=== PATIENT | male | born 1965 | race Caucasian/White ===

== ENCOUNTER 2017-07-17 06:50 | Outpatient (CLI) | payer BC ==
[~2017-07-17] VITALS: Ht 185.4 cm; Wt 96.8 kg
--- NOTE | ~2017-07-17 | HEMODYNAMI ---
PATIENT:EULALIA WILLOUGHBY MEDICAL RECORD: [id number] : 61 LOCATION:[facility] ADMISSION DATE: 07/17/17 Generatedon:07/17/201710:32 Patient name: EULALIA WILLOUGHBY Patient #: [id number] SSN: : 1965 Date of study: 07/17/2017 Page: Of Hemodynamic Procedure Report Patient Data Patient Demographics Procedure consent was obtained First Name: EULALIA Gender: Male Last Name: CASE : 1965 Patient #: [id number] Age: 52 year(s) Race: Additional ID: [id number] Contact details Address: [place] [address] [place] [facility] Zip code: [address] Past Medical History Allergies: No known allergies Admission Admission Data Admission Date: 07/17/2017 Admission Time: 6:50 Procedure Procedure Types Cath Procedure Diagnostic Procedure Cardioversion Procedure Description Procedure Date Procedure Date: 07/17/2017 Procedure Start Time: 10:10 Procedure End Time: 10:28 Procedure Staff Name Function Marcus Duarte MD Performing Physician Madi Lemos RN Nurse Vito Jacob RT Monitor Yumiko Centeno RT Monitor Procedure Data Cath Procedure Fluoroscopy Diagnostic fluoroscopy Total fluoroscopy Time: 0 time: 0 min min Diagnostic fluoroscopy Total fluoroscopy dose: 0 dose: 0 mGy mGy Contrast Material Contrast Material Type Amount (ml) Isovue 300 0 Estimated blood loss: 10 ml Procedure Complications No complications Procedure Medications Medication Administration Route Dosage Oxygen NC 2 l/min Refer to Anesthesia Notes for Sedation Medications Hemodynamics Rest Pre Cath Intra NCS Post Cath Vital Signs Time Heart Resp SPO2 NIBP (mmHg) Rhythm Pain Sedation Rate (ipm) (%) Status Level (bpm) 9:45:35 68 17 97 121/83(97) NSR 0 (11) 10(A) , No pain 9:49:41 59 16 98 112/76(95) NSR 0 (11) 10(A) , No pain 9:53:43 54 23 97 114/79(101) NSR 0 (11) 10(A) , No pain 9:58:50 59 21 98 122/77(95) NSR 0 (11) 10(A) , No pain 10:02:56 59 14 98 119/80(97) NSR 0 (11) 10(A) , No pain 10:06:59 60 11 100 119/84(98) NSR 0 (11) 10(A) , No pain 10:12:35 128 19 99 Out of NSR 0 (11) 9(A) range , No pain 10:15:27 80 20 97 115/86(93) NSR 0 (11) 8(A) , No pain 10:19:37 77 26 97 108/80(95) NSR 0 (11) 9(A) , No pain 10:23:45 80 23 99 113/78(89) NSR 0 (11) 9(A) , No pain 10:27:57 60 17 99 106/63(78) NSR 0 (11) 9(A) , No pain Medications Time Medication Route Dose Verified Delivered Reason Notes Effectivene ss by by 9:54:52 Oxygen NC 2 Marcus Madi used for l/min Gerald Lemos swatch folder 9:54:57 Refer to Marcus Madi Anesthesia Gerald Lemos RN Notes for Sedation Medications Procedure Log Time Note 9:30:45 Vito Jacob RT(R) sent for patient. Start room use. 9:40:46 Time tracking: Regular hours 9:40:49 Plan of Care:Hemodynamics will remain stable., Cardiac rhythm will remain stable., Comfort level will be maintained., Respiratory function will remain adequate., Patient/ family verbilizes understanding of procedure., Procedure tolerated without complication., Recovers from procedure without complications.. 9:41:02 Patient arrived from Pre/Post Procedure Room to [facility] 2. Patient remains on bed/stretcher for procedure. 9:41:03 Warm blankets applied, and pauly hugger turned on for patient comfort. 9:41:04 Correct patient and procedure confirmed by team. 9:41:05 Signed procedure consent form obtained from patient. 9:41:05 ECG and BP/O2 sat monitors applied to patient. 9:41:15 [employer]tr[employer] office machines sales representative Mayo Love present for procedure. 9:42:50 Quick Combo opened to sterile field. 9:43:06 H&P Date Dictated: 07/07/2017 Within 30 days and on chart., H&P Addendum completed by physician on day of procedure. (MUST COMPLETE FOR ALL OUTPATIENTS). 9:43:06 Pre-procedure instructions explained to patient. 9:43:07 Pre-op teaching completed and patient verbalized understanding. 9:43:10 Family in patients room. 9:43:11 Patient NPO since Midnight. 9:43:12 Is the patient allergic to Iodine/contrast media? No. 9:43:13 Is patient on blood thinner?Yes 9:43:15 ACC The patient was administered the following blood thiners within the last 24 hours: Xarelto 9:43:18 Patient diabetic? No. 9:43:20 Previous problem with sedation/anesthesia? No ? 9:43:20 Snore? Yes 9:43:21 Sleep apnea? Yes 9:43:22 Deviated septum? No 9:43:23 Opens mouth fully? Yes 9:43:23 Sticks out tongue? Yes 9:43:25 Airway obstruction? No ? 9:43:26 Dentures? No ? 9:43:30 Patient pain scale 0/10 ?. 9:43:35 IV patent on arrival in left hand with 0.9% NaCl at [facility]. 9:43:37 Lab results completed and on chart. 9:43:39 Alarms reviewed by Emanuel Kumari 9:43:45 Quick combo pads placed on patients chest and back. 9:44:39 Vital chart was started 9:45:53 Rhythm: atrial fibrillation 9:45:55 Full Disclosure recording started 9:53:57 Kt Beckham present and monitoring patient for TIVA. 9:54:17 Case delayed do to Physician working in [facility]. 9:54:52 Oxygen 2 l/min NC was administered by Madi Lemos RN; used for procedure; 9:54:57 Refer to Anesthesia Notes for Sedation Medications was administered by Madi Lemos RN; ; 10:06:26 --------ALL STOP TIME OUT------ 10:06:27 Final Timeout: patient, procedure, and site verified with staff and physician. All members of the team are in agreement. 10:06:33 Physical assessment completed. ASA score P 3 - A patient with severe systemic disease as per Marcus Duarte MD. 10:06:37 Sedation plan: TIVA Propofol 10:10:11 Procedure started. 10:13:43 Defibrillator synced and charged to 200 Joules. 10:13:49 Shock delivered. 10:14:24 Patient cardioverted to sinus rhythm . 10:17:34 Procedure ended.(Physican Out) 10:25:57 Fluoroscopy time 00.00 minutes. 10::59 Flurop Dose total: 0 10::59 Fluoroscopy dose: 0 mGy 10:26:02 Contrast amount:Isovue 300 0ml. 10:26:16 Post-procedure physical assessment completed. ASA score P 3 - A patient with severe systemic disease as per Marcus Duarte MD. 10:26:19 Post procedure rhythm: unchanged. 10::22 Estimated blood loss: 10 ml 10:27:31 Post procedure instruction explained to patient.Patient verbalizes understanding. 10:27:31 Patient needs reinforcement of post procedure teaching. 10:27:39 Procedure and supply charges have been captured, reviewed, submitted and are correct. 10::59 Procedure Complication : No complications 10:28:02 Vital chart was stopped 10:28:02 See physician's report for complete and final results. 10:28:13 Report given to Pre/Post Procedure Room. 10:28:15 Patient transfered to Pre/Post Procedure Room with Stretcher. 10:28:17 Procedure ended. 10:28:17 Full Disclosure recording stopped 10:28:20 End room use (Document Last) Device Usage Item Manufacture Quantity Catalog Hospital Part Current Minimal Lot# / Name Number Charge Number Stock Stock Festusi al# Code [employer] 1 [id number] Combo Signature Audit [place] [employer] Time Signature Unsigned Intra-Procedure 07/17/2017 Vito Jacob 10:32:06 AM RT(R) Signatures Monitor : Vito Jacob RT Signature : Date : Time : Monitor : Yumiko Centeno Signature : RT Date : Time : [place] [address] [place] [address]
[~2017-07-17 06:50] MED LIST: BAYER CHEWABLE81 MG PO; BETAPACE 80 MG80 MG PO; CORDARONE PO; CORDARONE200 MG; CORDARONE200 MG PO; COREG PO; COREG25 MG PO; COREG6.25 MG PO; COZAAR25 MG PO; K-DUR20 MEQ PO; LASIX PO; LASIX20 MG PO; LOPRESSOR25 MG PO; MAGNESIUM OXID250 M1 PO; NEXIUM20 MG; PLAVIX75 MG PO; POTASSIUM PO; POTASSIUM99 M1 PO; SODIUM BICARBO325 MG PO; SODIUM CHLORIDE PO
[2017-07-17 08:25] VITALS: BP 102/74; Ht 185.4 cm; Wt 96.8 kg
[2017-07-17] MEDS ORDERED: XARELTO15 MG PO (08:32)
[2017-07-17 08:51] LABS: INR 1.95 (0.85-1.17); PROTIME 22.3 SECONDS (11.6-15.0)
[2017-07-17 08:55] LABS: CALCIUM 8.9 mg/dL (8.5-10.1); CARBON DIOXIDE 31.3 mmol/L (21.0-32.0); CREATININE - SERUM 1.3 mg/dL (0.6-1.3); POTASSIUM - SERUM 4.3 mmol/L (3.5-5.1)
[2017-07-17 09:56] LABS: BASOPHILS 0.7 % (0-2); EOSINOPHILS 4.1 % (0-7); HEMATOCRIT 48.4 % (42.0-54.0); IMMATURE GRANULOCYTES 0.2 % (0-5); MCHC 33.1 g/dL (31.0-37.0); MCV 90.8 fL (80.0-100.0); MEAN PLATELET VOLUME 12.1 fL (7.4-10.4); MONOCYTES 11.5 % (2-11); NEUTROPHILS 57.5 % (40-80); PLATELET COUNT 162 10x3/uL (130-400); RBC 5.33 10x6/uL (4.20-6.10); RDW 13.4 % (11.5-14.5); WBC 4.4 10x3/uL (4.8-10.8)
--- NOTE | 2017-07-17 10:30 | NUR ---
1030 RECEIVED PT FROM [facility]. PT IS ALERT, DENIES ANY C/O. SINUS RHYTHM, PACED AT 60 PER MONITOR, VSS. CALL LIGHT IN REACH, DENIES NEEDS AT THIS TIME.
--- NOTE | 2017-07-17 11:18 | NUR ---
1045 OFFERED PO FLUIDS AND SANDWICH, PT DECLINES AT THIS TIME. RR EVEN AND UNLABORED. VSS. PACED RHYTHM AT 60. PT DENIES ANY C/O CHEST PAIN.
--- NOTE | 2017-07-17 11:20 | NUR ---
1120 PT DENIES ANY C/O CHEST PAIN OR NAUSEA. VSS. STATES DOES NOT WANT SANDWICH AT THIS TIME.
--- NOTE | 2017-07-17 13:13 | NUR ---
1145 PT DENIES ANY C/O CHEST DISCOMFORT. PACED NSR AT 60. IV DC'D WITH CATH INTACT. PT DRESSING FOR DC. 1200 REVIEWED DC INSTRUCTIONS WITH PT WHO VERBALIZES UNDERSTANDING. PT HAS VOIDED QS. PT ESCORTED TO PRIVATE AUTO VIA WC BY NURSE WITH DRIVING HIM HOME.
== END 2017-07-17 12:00 | disposition home or self-care (01) ==
LOC: D.CATH 06:50
PROVIDERS: Internal Medicine Cardiovascular Disease
DX: I48.91 Unspecified atrial fibrillation (principal); Z01.812 Encounter for preprocedural laboratory examination

== ENCOUNTER 2018-05-21 12:50 | Day surgery (SDC) | payer BC ==
[~2018-05-21] VITALS: Ht 185.4 cm; Wt 97.1 kg
--- NOTE | ~2018-05-21 | OP ---
PATIENT NAME: EULALIA WILLOUGHBY MEDICAL RECORD: [id number] :61 LOCATION:[facility] ADMISSION DATE: SURGEON: CINTHIA BOWEN MD DATE OF OPERATION: 05/21/2018 SURGEON: Cinthia Bowen MD ANESTHESIA: General, Dr. Castillo. OPERATION PERFORMED: AICD pulse generator exchange. PREOPERATIVE DIAGNOSES: Cardiomyopathy, ventricular fibrillation. POSTOPERATIVE DIAGNOSES: Cardiomyopathy, ventricular fibrillation. INDICATION FOR OPERATION: Pulse generator battery end of life. FINDINGS OF THE OPERATION: Pulse generator end of life. The newly implanted pulse generator Medtronic model number [id number], serial number [id number]. Explanted defibrillator Medtronic model number R605VPW, serial number [id number]. LEAD ANALYSIS: Right atrium threshold 1 volt, current lead threshold 0.1 milliamps, resistance 474 ohms, P-wave 0.6. Ventricular lead threshold 1.75, current lead threshold 0.5 milliamps, resistance 340 ohms, R-wave 5.1. ESTIMATED BLOOD LOSS: Less than 5 cc. DESCRIPTION OF PROCEDURE: After informed consent, adequate preoperative medication and evaluation, the patient was brought to the operating room, placed on the table in supine position. After induction of general anesthesia, application of appropriate monitoring devices, left chest was prepped and draped in sterile field, utilizing Betadine scrub, alcohol, and Betadine solution. Betadine-impregnated drape was also used, 1% lidocaine was infiltrated over the device as well as in the pulse generator pocket. An incision was made. Dissection carried down the pectoralis major muscle. The implant was subpectoral. The muscle was divided and the pocket opened, the device was removed. The leads mobilized. The pocket was enlarged medially and inferiorly. Hemostasis was assured. The old device was removed and the new device connected to the leads. The pocket was irrigated. Hemostasis was assured. The pulse generator was then placed in the pocket and the device suspended with a 2-0 TiCron suture. The pocket was again irrigated. Instrument count, sponge count were correct times 2. Muscle was closed in layers utilizing 2-0 Vicryl on the muscle, 2-0 Vicryl on the deep subcutaneous tissue, 3-0 Vicryl on the superficial subcutaneous tissue, and skin approximated with 5-0 subcuticular Monocryl. Sterile dressings were applied. The patient tolerated the procedure well and was transferred to postanesthesia recovery in satisfactory condition. TRANSINT:[id number] Voice Confirmation ID: [id number] DOCUMENT ID: [id number] OPERATIVE REPORT [id number] EULALIA WILLOUGHBY EDWARD MD at 1358 CC: [id number] DICTATION DATE: 05/21/18 1627 SEO EXECUTIVE: 05/21/18 1800 [facility] 05/21/[address] [address]
--- NOTE | ~2018-05-21 | HP ---
PATIENT: EULALIA WILLOUGHBY MEDICAL RECORD: [id number] ACCOUNT: [id number] LOCATION:D.OPS : 61 ADMISSION DATE: 05/21/18 HISTORY AND PHYSICAL EXAMINATION NameEULALIA WILLOUGHBY (53yo, M) ID# [id number]. Date/Time05/21/2018 09:[id number]//1965[facility] Dept[facility] ClinicProviderEDBELEM SIBLEY MDInsuranceMed [place] Insurance # : [id number] Policy/Group # : [id number] Referring Provider Name : ROLDAN LEO Employer Name : [employer] Prescription: CMX - Member is eligible. Chief Complaint pulse generator end-of-life Evaluate for ICE gen. exchange Patient's Care Team Referring Provider (): ROLDAN LEO: [address] [place] [id number], , Other: ANNEMARIE ROBERTS MD: [address] [place] [address], Patient's Pharmacies [facility] (ERX): [address] [facility] [address], , Vitals BP:128/70 sitting R arm 05/21/2018 10:07 amHR:72/reg 05/21/2018 10:07 amHt:6 ft 1 in 05/21/2018 10:05 amWt:214 lbs 05/21/2018 10:05 amBMI:28.2 05/21/2018 10:05 amAllergies Reviewed Allergies NKDAMedications Reviewed Medications acetaminophen 300 mg-codeine 30 mg dbntih44/23/17 filledCaremarkamoxicillin 500 mg hvorvvq06/18/17 filledCaremarkamoxicillin 875 mg ilsrmm61/24/17 filledCaremarkaspirin 81mg05/20/18 enteredErika Watkinscarvedilol 25 mg loprcc93/01/18 filledCaremarkcarvedilol 3.125 mg cipqhg15/20/13 nmtrowYKBCRLicmqica14/30/11 enteredTracy Savaclopidogrel 75 mg trnouq86/26/12 filledMEDCOfluticasone 50 mcg/actuation nasal spray,xkdyxbqyil96/18/17 filledCaremarkFluzone Quad (PF) 60 mcg(15 mcgx4)/0.5 mL intramuscular bhdeled13/20/17 filledCaremarkfurosemide 20 mg lezvax29/15/18 filledCaremarkKlor-Con M20 mEq tablet,extended qettlzt82/20/18 filledCaremarklisinopril 2.5 mg /06/13 filledMEDCOlosartan 25 mg tablet Take 1 tablet(s) every day by oral route.05/20/18 enteredVanna WatkinsmetHOTREXate sodium 2.5 mg ipxior58/14/13 filledMEDCOmetOLazone 2.5 mg tablet Take 1 tablet(s) every day by oral route.05/20/18 enteredVanna PerezYfegzyhPyawuut83/30/11 enteredTracy Savaomeprazole 40 mg capsule,delayed twsqvuz61/01/12 filledMEDCOoseltamivir 75 mg fztogdi82/01/17 filledCaremarkoxyCODONE-acetaminophen 5 mg-325 mg ubtcub08/24/17 filledCaremarkpantoprazole 40 mg tablet,delayed uakxwdu43/04/12 filledMEDCOpenicillin V potassium 500 mg acmbam83/23/17 filledCaremarksotalol 80 mg tablet Take 1 tablet(s) twice a day by oral route.05/20/18 enteredVanna Pereztriamcinolone acetonide 0.1 % topical cream02/06/18 filledCaremarkXarelto 15 mg tablet Take 1 tablet(s) every day by oral route.05/20/18 Dante PerezProblems HISTORY AND PHYSICAL [id number] EULALIA WILLOUGHBY Reviewed Problems Mitral valve disorder Tricuspid valve disorder Cardiomyopathy Paroxysmal supraventricular tachycardia Obstructed diaphragmatic hernia Edema Dysphagia Automatic implantable cardiac defibrillator in situ Family History Reviewed Family History Mother- Malignant tumor of colon - previously recorded as Cancer, ColonSocial History Reviewed Social History Cardiology and General Family history of heart disease?: Y Smoking Status: Never smoker High Cholesterol: N High blood pressure: N Diabetes: N Alcohol intake: Occasional Occupation: SALES Marital status: Caffeine intake: Occasional Surgical History Reviewed Surgical History Other - broken shoulder and leg 2003 05/20/18 no PA required for 05/21/18 AICD gen exchange per Nakul @ [facility]. Ref #: [id number]. *SJ stent 12/09/05 ptac/stent lad ablation 01/11/14 pacemaker 05/03/13-medtronic stent 01/28/12-lad Past Medical History Reviewed Past Medical History Arrhythmia: Y - AFIB/SVT Atrial fibrillation: Y Chest Pain: Y Coronary Artery Disease: Y Heart Disease: Y Hiatal Hernia: Y Shortness of Breath: Y Notes: DEFIBRILLATOR-MEDTRONIC CARDIOMYOPATHY Documents for Discussion N/A Screening None recorded. HPI AICD Battery end-of-life HISTORY AND PHYSICAL [id number] EULALIA WILLOUGHBY Patient reports no fever, no night sweats, no significant weight gain, no significant weight loss, and no exercise intolerance. He reports no dry eyes, no irritation, and no vision change. He reports no difficulty hearing and no ear pain. He reports no frequent nosebleeds and no nose/sinus problems. He reports no sore throat, no bleeding gums, no snoring, no dry mouth, no mouth ulcers, no oral abnormalities, and no teeth problems. He reports no jugular vein distension and no swollen glands. He report s no chest pain, no arm pain on exertion, no shortness of breath when walking, no shortness of breath when lying down, no palpitations, and no known heart murmur. He reports no cough, no wheezing, no shortness of breath, and no coughing up blood. He report s no abdominal pain, no vomiting, normal appetite, no diarrhea, not vomiting blood, no nausea, and no constipation. He reports no incontinence, no difficulty urinating, no hematuria, and no increased frequency. He reports no muscle aches, no muscle weaknes s , no arthralgias/joint pain, no back pain, and no swelling in the extremities. He reports no abnormal mole, no jaundice, and no rashes. He reports no loss of consciousness, no weakness, no numbness, no seizures, no dizziness, and no headaches. He reports no depression, no sleep disturbances, feeling safe in relationship, and no alcohol abuse. He reports no fatigue. He reports no swollen glands and no bruising. He reports no runny nose, no sinus pressure, no itching, no hives, and no frequent sneezing. ROS as noted in the HPI Physical Exam Patient is a 53-year-old male. Constitutional: General Appearance well nourished and developed and healthy-appearing. Level of Distress NAD. Ambulation ambulating normally. Cardiovascular: Apical Impulse not displaced or no thrill; AICD left pectoral. Heart Auscultation normal s1 and s2; no murmurs, rubs, or gallops; and RRR. Arterial Pulses no abdominal aorta bruits, femoral bruits, or popliteal bruits and 2+ bilateral, carotid 2+ bilateral, femoral 2+ bilateral, poplite al 2+ bilateral, and dorsalis pedis 2+ bilateral. Edema no edema or varicosities. Lungs: Repiratory Effort no dyspnea. Percussion no hyperresonance or dullness or flatness. Auscultation no wheezing, rhonchi, or rales / crackles and breathing sounds normal, good air movement, and CTA except as noted. Abdomen: Bowl Sounds normal. Inspection and Palpation no tenderness, guarding, masses, or rebound tenderness and soft and non-distended. Liver non-tender and no hepatomegaly. Spleen non-tender and no splenomegaly. Hernia none palpable. Musculoskeletal System: Gait And Stance normal gait and stance. Digits and Nails normal nails and no cyanosis. Neurologic: Cranial Nerves grossly intact. Reflexes DTRs 2+ bilaterally throughout. Sensation grossly intact. Lymph Nodes: Lymph Nodes no cervical LAD, supraclavicular LAD, axillary LAD, or inguinal LAD. Eyes: Lids and Conjunctivae no discharge or pallor and non-injected. Pupils PERRLA. Cornea grossly intact. EOM EOMI. Lens clear. Sclerae non-icteric. Neck: Neck no masses, enlarged lymph nodes, or carotid bruits and supple and trachea midline. Thyroid no enlargement or nodules and non-tender. HISTORY AND PHYSICAL [id number] EULALIA WILLOUGHBY Skin: Inspection and Palpation no rash, lesions, ulcers, jaundice, or abnormal nevi. Assessment / Plan automatic implantable cardio defibrillator in situ 1. Automatic implantable cardiac defibrillator in situ Z95.810: Presence of automatic (implantable) cardiac defibrillator Discussion Notes I have discussed the tyrone moon's disease process with him in detail as well as the alternative methods of treatment we discussed AICD generator exchange including the expected benefits and risk which included bleeding, infection, stroke, , and imponderables. He understands a ll of the above and wishes to proceed with planned surgery. CINTHIA SIBLEY MD at 1358 CC: [id number] DICTATION DATE: 05/21/18 0940 GRIT REMOVAL OPERATOR: DM 05/21/18 1034 [facility] 05/21/18 [address] [place] [address]
[~2018-05-21 12:50] MED LIST changes: +XARELTO15 MG PO
[2018-05-21 13:30] LABS: HEMOGLOBIN 14.2 g/dL (13.5-17.5); MCH 29.7 pg (26.0-34.0); MEAN PLATELET VOLUME 11.3 fL (7.4-10.4); RBC 4.78 10x6/uL (4.20-6.10); RDW 13.2 % (11.5-14.5); WBC 4.5 10x3/uL (4.8-10.8)
[2018-05-21 13:34] LABS: APTT 29.3 SECONDS (22.8-39.4); INR 1.17 (0.85-1.17); PROTIME 14.5 SECONDS (11.6-15.0)
[2018-05-21 13:35] LABS: ANION GAP 8.6 mmol/L (8-16); CALCIUM 10.3 mg/dL (8.5-10.1); CARBON DIOXIDE 33.5 mmol/L (21.0-32.0); CREATININE - SERUM 1.2 mg/dL (0.6-1.3); POTASSIUM - SERUM 4.1 mmol/L (3.5-5.1)
[2018-05-21 14:24] VITALS: BP 121/70; Ht 185.4 cm; Wt 97.1 kg
== END 2018-05-21 18:25 | disposition home or self-care (01) ==
LOC: D.OPS 12:50
PROVIDERS: Internal Medicine Cardiovascular Disease
DX: Z45.02 Encounter for adjustment and management of automatic implantable cardiac defibrillator (principal); I42.9 Cardiomyopathy, unspecified; I49.01 Ventricular fibrillation; Z01.812 Encounter for preprocedural laboratory examination

== ENCOUNTER → 2018-08-25 11:12 | Outpatient (CLI) | payer BC ==
[~2018-08-25] VITALS: Ht 185.4 cm; Wt 99.1 kg
--- NOTE | ~2018-08-25 | OP ---
PATIENT NAME: EULALIA WILLOUGHBY MEDICAL RECORD: [id number] :61 LOCATION:[facility] ADMISSION DATE: SURGEON: SERENITY HSIEH MD DATE OF OPERATION: 08/25/2018 PROCEDURE: Cardioversion. DESCRIPTION OF PROCEDURE: After general sedation via TIVA anesthesia, single synchronized shock at 200 joules was successful in restoring atrial fibrillation to normal sinus rhythm. IMPRESSION: Successful cardioversion. COMPLICATIONS: None. DISPOSITION: To the floor, stable. TRANSINT:[id number] Voice Confirmation ID: [id number] DOCUMENT ID: [id number] SERENITY HSIEH MD at 1305 CC: [id number] DICTATION DATE: 08/25/18 1409 REGULATOR OPERATOR: 08/25/18 1422 [facility] CLI 08/25/18 [id number] [place] [address]
[~2018-08-25 11:12] MED LIST changes: +LEVOXYL25 MCG PO; +OMEPRAZOLE40 MG PO; +XARELTO20 MG PO
[2018-08-25 11:39] VITALS: BP 110/81; Ht 185.4 cm; Wt 99.1 kg
[2018-08-25 11:55] LABS: BASOPHILS 0.5 % (0-2); EOSINOPHILS 2.5 % (0-7); HEMATOCRIT 40.4 % (42.0-54.0); HEMOGLOBIN 13.4 g/dL (13.5-17.5); IMMATURE GRANULOCYTES 0.5 % (0-5); LYMPHOCYTES 16.6 % (15-50); MCH 29.3 pg (26.0-34.0); MCHC 33.2 g/dL (31.0-37.0); MCV 88.4 fL (80.0-100.0); MEAN PLATELET VOLUME 11.1 fL (7.4-10.4); MONOCYTES 10.5 % (2-11); NEUTROPHILS 69.4 % (40-80); PLATELET COUNT 150 10x3/uL (130-400); RBC 4.57 10x6/uL (4.20-6.10); RDW 13.8 % (11.5-14.5); WBC 6.5 10x3/uL (4.8-10.8)
[2018-08-25 12:05] LABS: INR 3.43 (0.85-1.17); PROTIME 33.8 SECONDS (11.6-15.0)
== END | disposition home or self-care (01) ==
LOC: D.CATH 11:12
PROVIDERS: Internal Medicine Cardiovascular Disease
DX: I48.1 Persistent atrial fibrillation (principal)

== ENCOUNTER 2018-11-19 11:25 | Day surgery (SDC) | payer BC ==
[~2018-11-19] VITALS: Ht 185.4 cm; Wt 100.0 kg
[2018-11-19 11:44] LABS: HEMATOCRIT 44.1 % (42.0-54.0); HEMOGLOBIN 14.3 g/dL (13.5-17.5); MCH 29.1 pg (26.0-34.0); MCHC 32.4 g/dL (31.0-37.0); MCV 89.6 fL (80.0-100.0); MEAN PLATELET VOLUME 10.6 fL (7.4-10.4); RBC 4.92 10x6/uL (4.20-6.10); RDW 14.8 % (11.5-14.5); WBC 6.8 10x3/uL (4.8-10.8)
[2018-11-19 12:05] VITALS: BP 116/73; Ht 185.4 cm; Wt 100.0 kg
--- NOTE | 2018-11-19 12:56 | NUR ---
DILATED ESOPHAGUS TO 57 FR.
--- NOTE | 2018-11-19 15:00 | NUR ---
DC INSTRUCTIONS GIVEN TO PT. STATES UNDERSTANDING. DC'D IV CATH FULLY INTACT.
--- NOTE | 2018-11-19 15:22 | NUR ---
PT LEFT UNIT VIA WC AT 1522
--- NOTE | 2018-11-27 15:41 | OP ---
PATIENT NAME: EULALIA MORGAN MEDICAL RECORD: [id number] :61 LOCATION:D.[facility] ADMISSION DATE: SURGEON: DAYA VEGAS MD DATE OF OPERATION: 11/19/2018 PROCEDURE: EGD with biopsy and esophageal balloon dilatation. REFERRING PHYSICIAN: Roldan Leo MD WOOD MECHANIST: Marcus Duarte MD INDICATIONS: Mr. Morgan is a delightful 53-year-old gentleman with a history of cardiac arrhythmia status post ablation, on Xarelto therapy. He has had longstanding history of dysphagia. He has symptoms of dysphagia and acid reflux, have improved initially on Omeprazole 40 mg p.o. b.i.d., he decreased the dose down to 40 mg p.o. daily secondary to diarrhea symptoms, which resolved. He presents for outpatient EGD. PREMEDICATIONS: Total IV anesthesia (propofol 100 mg). INSTRUMENT: Olympus video gastroscope and a through the scope esophageal balloon dilator. PROCEDURE AND FINDINGS: After receiving informed consent, Mr. Prados posterior pharynx was anesthetized with Cetacaine spray, placed in left lateral decubitus position, sedated as per anesthesia. After achieving adequate level of sedation, gastroscope was introduced per orally and advanced into the duodenum without difficulty. The esophageal mucosa was without ulcers or masses. At the GE junction was a thick nonobstructing ring through which the scope passed easily. Small hiatal hernia was present. Gastric mucosa was notable for minimal prepyloric and antral erythema, and antral biopsies were obtained to rule out Helicobacter pylori. The mucosa of the cardia, fundus and body of the stomach was normal. The pylorus was patent and competent. Duodenal mucosa was without erythema or ulcers, appeared normal through the second portion. Gastroscope was then withdrawn to the stomach and through the scope esophageal balloon dilator was passed and then positioned midway across the distal esophagus, insufflated to a 57-Mohawk size, held in place on the appropriate PSI for 60 seconds, then deflated with good results. The balloon and then the gastroscope was withdrawn. Mr. Morgan tolerated the procedure well, no immediate complications. ASSESSMENT: 1. Thick nonobstructive Schatzki's rings status post esophageal balloon dilatation. 2. Small hiatal hernia. 3. Mild gastritis. RECOMMENDATIONS: 1. Follow up histopathology. 2. Resume Xarelto and aspirin tomorrow. 3. Continue omeprazole 40 mg daily. 4. Esophageal EGD with esophageal balloon dilatation as needed. 5. Soft diet today and then resume regular diet tomorrow. TRANSINT:[id number] Voice Confirmation ID: [id number] DOCUMENT ID: [id number] OPERATIVE REPORT [id number] EULALIA MORGAN TERRI MD at 1541 CC: DAHIANA DUARTE M.D. and ROLDAN LEO MD [id number] DICTATION DATE: 11/19/18 1305 PROTOTYPE ENGINEER MANAGER: 11/19/18 1650 [facility] 11/19/18 [facility] [address] [place] [address]
== END 2018-11-19 15:22 | disposition home or self-care (01) ==
LOC: D.OPS 11:25
PROVIDERS: Anesthesiology
DX: K22.2 Esophageal obstruction (principal); K44.9 Diaphragmatic hernia without obstruction or gangrene; K29.70 Gastritis, unspecified, without bleeding; Z79.01 Long term (current) use of anticoagulants; Z01.812 Encounter for preprocedural laboratory examination

== ENCOUNTER → 2018-11-25 08:42 | Outpatient (CLI) | payer BC ==
[2018-11-19 12:05] VITALS: BMI 29.0
== END | disposition home or self-care (01) ==
LOC: D.CT 08:42
DX: R05 Cough (principal); J18.9 Pneumonia, unspecified organism

== ENCOUNTER → 2018-12-16 17:26 | Outpatient (CLI) | payer BC ==
[2018-11-19 12:05] VITALS: BMI 29.0
[2018-12-18 14:26] LABS: ANA REFLEX - DIRECT Negative (Negative)
[2018-12-21 13:13] LABS: ANGIOTENSIN CONVERTING ENZYME 147 U/L (14-82)
[2018-12-21 18:08] LABS: ANCA - ANTIMYELOPEROXIDASE <9.0 U/mL (0.0-9.0); ANCA - ANTIPROTEINASE 3 <3.5 U/mL (0.0-3.5); ANCA - ATYPICAL <1:20 titer (Neg:<1:20); ANCA - CYTOPLASMIC <1:20 titer (Neg:<1:20); ANCA - PERINUCLEAR <1:20 titer (Neg:<1:20)
== END | disposition home or self-care (01) ==
LOC: D.LABREF 17:26
PROVIDERS: Internal Medicine Pulmonary Disease
DX: J84.10 Pulmonary fibrosis, unspecified (principal)

== ENCOUNTER → 2018-12-21 10:54 | Outpatient (CLI) | payer BC ==
[2018-11-19 12:05] VITALS: BMI 29.0
== END | disposition home or self-care (01) ==
LOC: D.RT 10:54
DX: J84.10 Pulmonary fibrosis, unspecified (principal)

== ENCOUNTER 2019-04-15 11:38 | Inpatient (IN) | payer BC ==
[~2019-04-15] VITALS: Ht 185.4 cm; Wt 102.1 kg
--- NOTE | 2019-04-15 12:15 | NUR ---
RECEIVED TO ROOM 2240 VIA WC FROM DRS OFFICE. A/O X3. UP TO BR PER SELF. SKIN IS INTACT EXCEPT RIGHT LEG IS REDDENED, WARM AND EDEMATOUS. PATIENT STATED THIS HAS BEEN ON GOING FOR ABOUIT A WEEK. IV SITED TO RIGHT FOREARM AFTER 2 ATTEMPTS WITH 20G. TOLERATED WELL.
[2019-04-15] MEDS ORDERED: MONODOX100 MG PO (12:27)
[2019-04-15 12:28] VITALS: BP 111/71; BMI 29.7
--- NOTE | 2019-04-15 14:50 | NUR ---
OFF UNIT VIA FOR CT SCAN.
--- NOTE | 2019-04-15 15:15 | NUR ---
RETURNED TO ROOM VIA . NO CHANGES AT THIS TIME.
--- NOTE | 2019-04-15 18:38 | NUR ---
ATE ALL OF SUPPER TRAY. DENIES NEEDS. AT BEDSIDE. NO CHANGES NOTED.
--- NOTE | 2019-04-15 19:45 | NUR ---
PT SITTING UP IN BED, ALERT AND ORIENTED. NO SIGNS OF DISTRESS. PT STATES HE IS HAVING PAIN TO RIGHT LEG WHEN HE MOVES IT AROUND. RIGHT LEG RED AND SWOLLEN FROM FOOT TO INNER THIGH. IV RIGHT FA WITHOUT REDNESS OR SWELLING, DRESSING CDI. DENIES NEEDS. CL IN REACH, WILL CONT TO MONITOR
[2019-04-15 20:00] VITALS: BP 100/54
[2019-04-16] VITALS: BP 96/54
[2019-04-16 04:00] VITALS: BP 100/58
[2019-04-16 06:08] LABS: BASOPHILS 0.2 % (0-2); EOSINOPHILS 0.8 % (0-7); HEMOGLOBIN 11.5 g/dL (13.5-17.5); IMMATURE GRANULOCYTES 1.7 % (0-5); MCH 29.2 pg (26.0-34.0); MCHC 32.9 g/dL (31.0-37.0); MCV 88.8 fL (80.0-100.0); MEAN PLATELET VOLUME 9.6 fL (7.4-10.4); MONOCYTES 6.4 % (2-11); NEUTROPHILS 81.9 % (40-80); RBC 3.94 10x6/uL (4.20-6.10); RDW 15.5 % (11.5-14.5); WBC 9.6 10x3/uL (4.8-10.8)
[2019-04-16 06:22] LABS: PLATELET COUNT 240 10x3/uL (130-400)
[2019-04-16 06:31] LABS: ANION GAP 10.9 mmol/L (8-16); CALCIUM 8.7 mg/dL (8.5-10.1); CARBON DIOXIDE 29.5 mmol/L (21.0-32.0); CREATININE - SERUM 1.2 mg/dL (0.6-1.3); POTASSIUM - SERUM 3.4 mmol/L (3.5-5.1)
--- NOTE | 2019-04-16 07:37 | NUR ---
AAOX4. ON ROOM AIR, GLASSES PRESENT, EVEN UNLABORED BREATHING, IV TO RIGHT FOREARM, PATENT, ZOYSN INFUSING, DENIES ANY CURRENT NEEDS OR DISCOMFORTS, BED LOWERED AND LOCKED, CALL LIGHT WITHIN REACH, CPOC
[2019-04-16 12:46] VITALS: Ht 185.4 cm; Wt 102.1 kg
--- NOTE | 2019-04-16 17:00 | NUR ---
AAOX4. ON ROOM AIR, IV TO RIGHT FOREARM PATENT, INFUSING ZOYSN, DENIES ANY NEEDS OR DISCOMFORTS, REDNESS OF RIGHT LEG HAS NOT RECEDED NOR SPREAD ANY FURTHER, STATES "ONLY HURTS WHEN I WALK". BED LOWERED AND LOCKED, CALL LIGHT WITHIN REACH. CPOC
[2019-04-16 18:02] VITALS: BP 101/55
--- NOTE | 2019-04-16 19:35 | NUR ---
PT SITTING UP IN BED WITHOUT DISTRESS. ALERT AND ORIENTED. DENIES PAIN EXCEPT WHEN HE WALKS. REDNESS TO RIGHT UPPER THIGH DOWN TO FOOT. REDNESS HAS NO PASS DRAWN BLACK LINE. WARM TO TOUCH. IV RIGHT FA INFUSING NS @ KVO. DENIES NEEDS. CL IN REACH, WILL CONT TO MONITOR
[2019-04-16 19:53] VITALS: BP 102/57
[2019-04-17] VITALS: BP 94/55
[2019-04-17 04:00] VITALS: BP 90/41
[2019-04-17 06:44] LABS: BASOPHILS 0.4 % (0-2); EOSINOPHILS 2.2 % (0-7); HEMATOCRIT 34.7 % (42.0-54.0); HEMOGLOBIN 11.4 g/dL (13.5-17.5); IMMATURE GRANULOCYTES 1.5 % (0-5); LYMPHOCYTES 14.4 % (15-50); MCH 29.5 pg (26.0-34.0); MCHC 32.9 g/dL (31.0-37.0); MCV 89.7 fL (80.0-100.0); MEAN PLATELET VOLUME 9.6 fL (7.4-10.4); MONOCYTES 9.7 % (2-11); NEUTROPHILS 71.8 % (40-80); PLATELET COUNT 225 10x3/uL (130-400); RBC 3.87 10x6/uL (4.20-6.10); RDW 15.6 % (11.5-14.5); WBC 7.4 10x3/uL (4.8-10.8)
[2019-04-17 07:16] LABS: CALC OSMOLALITY 277 mosm/kg (275-300); CALCIUM 8.6 mg/dL (8.5-10.1); CARBON DIOXIDE 30.4 mmol/L (21.0-32.0); CHLORIDE - SERUM 101 mmol/L (98-107); GLUCOSE 98 mg/dL (74-106); POTASSIUM - SERUM 3.4 mmol/L (3.5-5.1); SODIUM 138 mmol/L (136-145); UREA NITROGEN 17 mg/dL (7-18); eGFR NON AFRICAN AMERICAN 82 mL/min (90-120)
--- NOTE | 2019-04-17 07:34 | NUR ---
AAOX4. ON ROOM AIR, IV TO RIGHT FOREARM, PATENT, NS AT 25ML/HR, RIGHT LEG SWOLLEN, WARM TO TOUCH, IMPROVEMENT FROM YESTERDAY, PAIN LEVEL 2/10. DENIES ANY NEEDS OR DISCOMFORTS, BED LOWERED AND LOCKED, CALL LIGHT WITHIN REACH. CPOC
[2019-04-17 09:34] VITALS: BP 99/57
[2019-04-17 13:09] VITALS: BP 103/61
[2019-04-17 16:26] VITALS: BP 97/61
[2019-04-17 19:52] VITALS: BP 110/62
[2019-04-18] VITALS: BP 110/73
[2019-04-18 04:00] VITALS: BP 107/50
--- NOTE | 2019-04-18 05:02 | NUR ---
PT IN BED IN SUPINE POSITION. ALERT AND ORIENTED X4. RESPIRATIONS EVEN AND UNLABORED. VS STABLE AND AFEBRILE. NO VISUAL CUES OF DISTRESS NOTED. DENIES ANY OTHER NEEDS AT THIS TIME. BED LOW, SIDE RAILS UP X2. CALL LIGHT IN REACH. WILL CONTINUE TO MONITOR.
[2019-04-18 05:40] LABS: BASOPHILS 0.3 % (0-2); EOSINOPHILS 2.3 % (0-7); HEMATOCRIT 34.8 % (42.0-54.0); HEMOGLOBIN 11.4 g/dL (13.5-17.5); LYMPHOCYTES 8.6 % (15-50); MCH 29.4 pg (26.0-34.0); MCHC 32.8 g/dL (31.0-37.0); MCV 89.7 fL (80.0-100.0); MEAN PLATELET VOLUME 9.5 fL (7.4-10.4); NEUTROPHILS 77.8 % (40-80); PLATELET COUNT 257 10x3/uL (130-400); RBC 3.88 10x6/uL (4.20-6.10); RDW 15.5 % (11.5-14.5); WBC 7.3 10x3/uL (4.8-10.8)
[2019-04-18 06:19] LABS: CALC OSMOLALITY 276 mosm/kg (275-300); CALCIUM 8.6 mg/dL (8.5-10.1); CARBON DIOXIDE 28.7 mmol/L (21.0-32.0); CHLORIDE - SERUM 102 mmol/L (98-107); GLUCOSE 100 mg/dL (74-106); POTASSIUM - SERUM 3.9 mmol/L (3.5-5.1); SODIUM 138 mmol/L (136-145); UREA NITROGEN 16 mg/dL (7-18); eGFR NON AFRICAN AMERICAN 82 mL/min (90-120)
--- NOTE | 2019-04-18 07:56 | NUR ---
AAOX4. ON ROOM AIR, IV TO RIGHT FOREARM, PATENT, SALINE LOCKED, CELLULITIS TO RIGHT LEG IS IMPROVING SINCE YESTERDAY, UPPER RIGHT THIGH NO LONGER RED OR SWOLLEN, DENIES ANY CURRENT NEEDS OR DISCOMFORTS, BED LOWERED AND LOCKED, CALL LIGHT WITHIN REACH. CPOC
[2019-04-18 09:03] VITALS: BP 116/76
[2019-04-18 12:40] VITALS: BP 106/61
[2019-04-18 17:09] VITALS: BP 132/78
[2019-04-18 20:00] VITALS: BP 126/72
--- NOTE | 2019-04-18 20:00 | NUR ---
ALERT SITTING UP IN BED, DENIES PAIN AT THIS TIME, SEE SHIFT ASSESSMENT, CALL LIGHT IN REACH
[2019-04-19] VITALS: BP 130/61
[2019-04-19 03:00] VITALS: BP 108/71
[2019-04-19 06:02] LABS: BASOPHILS 0.4 % (0-2); HEMATOCRIT 35.4 % (42.0-54.0); HEMOGLOBIN 11.4 g/dL (13.5-17.5); IMMATURE GRANULOCYTES 0.7 % (0-5); LYMPHOCYTES 14.5 % (15-50); MCH 29.2 pg (26.0-34.0); MCHC 32.2 g/dL (31.0-37.0); MCV 90.8 fL (80.0-100.0); MEAN PLATELET VOLUME 9.1 fL (7.4-10.4); MONOCYTES 11.3 % (2-11); NEUTROPHILS 70.1 % (40-80); PLATELET COUNT 231 10x3/uL (130-400); RDW 15.7 % (11.5-14.5); WBC 5.6 10x3/uL (4.8-10.8)
[2019-04-19 06:17] LABS: CALC OSMOLALITY 279 mosm/kg (275-300); CALCIUM 8.7 mg/dL (8.5-10.1); CARBON DIOXIDE 27.3 mmol/L (21.0-32.0); CHLORIDE - SERUM 105 mmol/L (98-107); CREATININE - SERUM 0.9 mg/dL (0.6-1.3); GLUCOSE 97 mg/dL (74-106); POTASSIUM - SERUM 3.9 mmol/L (3.5-5.1); SODIUM 140 mmol/L (136-145); UREA NITROGEN 16 mg/dL (7-18); eGFR NON AFRICAN AMERICAN > 90 mL/min (90-120)
[2019-04-19 08:46] VITALS: BP 124/70
[2019-04-19 12:30] VITALS: BP 106/61
--- NOTE | 2019-04-19 14:28 | NUR ---
Nutrition follow up Pt is eating well on regular diet; 100-75% intake of meals today Noted may d/c tomorrow or Friday Pt not available in room at this time RD following
--- NOTE | 2019-04-19 16:40 | MORECARE ---
CASE MANAGEMENT DISCHARGE SUMMARY PATIENT: EULALIA MORGAN UNIT: [id number] ADM DATE: 04/16/19 AGE: 54 : 61 SEX: M ROOM/BED: D.2240 AUTHOR: MIGUEL A MESSER PHYSICIAN: REFERRING PHYSICIAN: ROLDAN LEO MD DATE OF SERVICE: 04/19/19 Discharge Plan Patient Name: EULALIA MORGAN Facility: [facility]:[place] : 1965 Planned Disposition: Home Anticipated Discharge Date: Discharge Date: Expected LOS: Initial Reviewer: [email or web address] Initial Review Date: 04/19/2019 Generated: 04/19/19 5:40 pm DCPIA - Discharge Planning Initial Assessment Updated by [email or web address]: Krupa Arreguin on 04/19/19 4:39 pm * Is the patient Alert and Oriented? Yes * How many steps to enter\exit or inside your home? 05/16 * PCP Dr. Leo * Pharmacy [facility] [address] * Preadmission Environment Home with Family * ADLs Independent * Equipment Cane * List name and contact numbers for known caregivers / representatives who currently or will assist patient after discharge: Eva Morgan - spouse - [phone] * Verbal permission to speak to the caregivers and representatives has been obtained from the patient. Yes * Community resources currently utilized None * Additional services required to return to the preadmission environment? No * Can the patient safely return to the preadmission environment? Yes * Has this patient been hospitalized within the prior 30 days at any hospital? No Patient Name: EULALIA MORGAN Page 23513 at 1640 All edits/amendments must be made on the electronic document DICTATION DATE: 04/19/19 1640 FISH RECEIVER: GABRIELA 04/19/19 1640 RPT#: [id number] DC DATE: STATUS: ADM IN [facility] [address] [place] [address] END OF REPORT
[2019-04-19 17:01] VITALS: BP 126/75
--- NOTE | 2019-04-19 20:00 | NUR ---
ALERT SITTING UP IN BED, DENIES PAIN OR NEEDS AT THIS TIME, SEE SHIFT ASSESSMENT, CALL LIGHT IN REACH
[2019-04-19 21:31] VITALS: BP 110/69
[2019-04-20 05:03] VITALS: BP 113/69
[2019-04-20 05:51] LABS: BASOPHILS 0.3 % (0-2); EOSINOPHILS 2.8 % (0-7); HEMATOCRIT 35.5 % (42.0-54.0); HEMOGLOBIN 11.5 g/dL (13.5-17.5); MCH 29.2 pg (26.0-34.0); MCHC 32.4 g/dL (31.0-37.0); MCV 90.1 fL (80.0-100.0); MEAN PLATELET VOLUME 9.5 fL (7.4-10.4); MONOCYTES 11.1 % (2-11); NEUTROPHILS 71.8 % (40-80); PLATELET COUNT 224 10x3/uL (130-400); RBC 3.94 10x6/uL (4.20-6.10); RDW 15.9 % (11.5-14.5); WBC 5.8 10x3/uL (4.8-10.8)
[2019-04-20 06:14] LABS: CALC OSMOLALITY 278 mosm/kg (275-300); CALCIUM 8.7 mg/dL (8.5-10.1); CARBON DIOXIDE 26.5 mmol/L (21.0-32.0); CHLORIDE - SERUM 106 mmol/L (98-107); CREATININE - SERUM 0.9 mg/dL (0.6-1.3); GLUCOSE 100 mg/dL (74-106); POTASSIUM - SERUM 4.3 mmol/L (3.5-5.1); SODIUM 139 mmol/L (136-145); UREA NITROGEN 16 mg/dL (7-18); eGFR NON AFRICAN AMERICAN > 90 mL/min (90-120)
[2019-04-20 08:43] VITALS: BP 123/86
[2019-04-20] MEDS ORDERED: CLEOCIN HCL300 MG PO (12:50)
--- NOTE | 2019-04-20 13:58 | MORECARE ---
CASE MANAGEMENT DISCHARGE SUMMARY PATIENT: EULALIA MORGAN UNIT: [id number] ADM DATE: 04/16/19 AGE: 54 : 61 SEX: M ROOM/BED: D.2240 AUTHOR: MIGUEL A MESSER PHYSICIAN: REFERRING PHYSICIAN: ROLDAN LEO MD DATE OF SERVICE: 04/20/19 Discharge Plan Patient Name: EULALIA MORGAN Facility: [facility]:[place] : 1965 Planned Disposition: Home Anticipated Discharge Date: Discharge Date: Expected LOS: Initial Reviewer: [email or web address] Initial Review Date: 04/19/2019 Generated: 04/20/19 2:57 pm Comments DCP- Discharge Planning Updated by [email or web address]: Krupa Arreguin on 04/20/19 12:[address] Patient Name: EULALIA MORGAN Encounter No: [id number] : 1965 Primary Insurance: [employer] [facility] Anticipated DC Date: Planned Disposition: Home External Planned Provider: : DCP follow-up note: Patient and family in agreement with discharge plan. No changes to plan. Case management will follow and assist as needed. Krupa Arreguin DCP- Discharge Planning Updated by [email or web address]: Krupa Arreguin on 04/19/19 3:[address] Patient Name: EULALIA MORGAN Admission Status: Elective Accout number: [id number] Admission Date: 04-16-2019 : 1965 Admission Diagnosis:LOWER ABDOMINAL PAIN, UNSPECIFIED Attending: ROLDAN LEO Current LOS: 3 Anticipated DC Date: Planned Disposition: Home Primary Insurance: [employer] [place] PPO Discharge Planning Comments: CM met with patient to complete initial dc planning assessment. CM educated patient on the CM role and verbal consent given by patient to complete assessment. Patient lives at home with his . At discharge patient plans to return and feels this is a safe discharge. CM discussed availability of home health, rehab services, and medical equipment. Patient denied known discharge needs at this time. CM will continue to follow and will assist as needed with dc plans/needs. Managing Supervisor: Krupa Arreguin DCPIA - Discharge Planning Initial Assessment Updated by [email or web address]: Krupa Arreguin on 04/19/19 4:39 pm * Is the patient Alert and Oriented? Yes * How many steps to enter\exit or inside your home? 05/16 * PCP Dr. Leo * [place] [facility] [place] [address] * Preadmission Environment Home with Family * ADLs Independent * Equipment Cane * List name and contact numbers for known caregivers / representatives who currently or will assist patient after discharge: Eva Morgan - [facility] - [phone] * Verbal permission to speak to the caregivers and representatives has been obtained from the patient. Yes * Community resources currently utilized None * Additional services required to return to the preadmission environment? No * Can the patient safely return to the preadmission environment? Yes * Has this patient been hospitalized within the prior 30 days at any hospital? No Last DP export: 04/19/19 3:40 p Patient Name: EULALIA MORGAN Page 62955 at 1358 All edits/amendments must be made on the electronic document DICTATION DATE: 04/20/191356 KIER HAND: GABRIELA 04/20/191356 RPT#: [id number] DC DATE: STATUS: ADM IN [facility] [address] [place] [address] END OF REPORT
[2019-04-20 14:40] VITALS: BP 126/79
--- NOTE | 2019-04-20 14:43 | NUR ---
DR HARE HERE OK WITH DC HOME
--- NOTE | 2019-04-20 15:56 | NUR ---
DISCHARGE INSTRUCTIONS GIVEN. PATIENT VERBALIZED UNDERSTANDING. 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 IV THERAPY DC'ED WITH TIP INTACT
== END 2019-04-20 15:57 | disposition home or self-care (01) | DRG 603 ==
LOC: D.MS 11:38 → D.CT 11:38 → D.MS 11:39 → D.CT 11:40 → D.MS 11:40 → OBSVTIME 11:40 → D.MS 11:40
PROVIDERS: ADMIT Family Medicine; ATTEND Family Medicine
DX: L03.314 Cellulitis of groin (principal); R78.81 Bacteremia; I50.9 Heart failure, unspecified; I48.91 Unspecified atrial fibrillation; L40.8 Other psoriasis

== ENCOUNTER → 2019-05-20 12:38 | Outpatient (CLI) | payer BC ==
[2019-04-16 12:46] VITALS: BMI 29.6
[~2019-05-20 12:38] MED LIST changes: +CLEOCIN HCL300 MG PO; +MONODOX100 MG PO
== END | disposition home or self-care (01) ==
LOC: D.CT 12:38
PROVIDERS: ATTEND Internal Medicine Cardiovascular Disease
DX: J84.10 Pulmonary fibrosis, unspecified (principal)

== ENCOUNTER 2019-06-11 13:20 | Inpatient (IN) | payer BC ==
[~2019-06-11] VITALS: Ht 185.4 cm; Wt 96.5 kg
--- NOTE | ~2019-06-11 | OP ---
PATIENT NAME: EULALIA WILLOUGHBY MEDICAL RECORD: [id number] :[birth year] LOCATION:[facility].CV01 ADMISSION DATE:06/14/19 SURGEON: CINTHIA BOWEN MD DATE OF OPERATION: 06/14/2019 SURGEON: Cinthia Bowen MD ANESTHESIA: General, Dr. Guo. OPERATION PERFORMED: 1. Video-assisted thoracoscopy. 2. Right middle lobe biopsy. 3. Right lower lobe biopsy. PREOPERATIVE DIAGNOSIS: Pulmonary fibrotic changes. POSTOPERATIVE DIAGNOSIS: Pulmonary fibrotic changes. INDICATION FOR OPERATION: Fibrous interstitial lung disease. ESTIMATED BLOOD LOSS: Negligible. Cultures were taken for anaerobic, TB, and fungus on both specimens. There were no suspicious lesions noted in the right hemithorax. DESCRIPTION OF PROCEDURE: After informed consent, adequate preoperative medication evaluation, the patient was brought to the operating room, placed on the table in the supine position. After induction of general endotracheal anesthesia and application of appropriate monitoring devices, the patient underwent placement of a double lumen tube. The patient was then turned in a left lateral decubitus and pressure points and neurological structures were protected. The right hemithorax was then prepped and draped in a sterile field, utilizing Betadine scrub, alcohol, and Betadine solution. Betadine-impregnated drape was also used. A port site was placed in the 9th interspace mid axillary line and the scope introduced. The other 2 ports anteriorly and posteriorly placed under direct guidance. The lung and hemithorax were examined. The middle lobe biopsy was then taken by grasping the edge of the lobe and utilizing an Endo-ARGELIA stapler, the specimen was removed. Portions cultured for anaerobic, TB, and fungal tissue cultures. Attention was then turned towards the lower lobe. The area of the lower lobe that looked involved with the fibrotic process was then grasped and utilizing an Endo-ARGELIA stapler, the biopsy was performed. A portion of this specimen was sent for tissue cultures as well. The chest was again examined. A #32 chest tube was placed in the camera port, secured and connected to underwater seal and suction. Instrument count and sponge counts were correct times 2. The anterior and posterior incisions were closed utilizing 2-0 Vicryl on the muscle and 3-0 Vicryl on subcutaneous tissue and skin approximated with 5-0 subcuticular Monocryl. Sterile dressings were applied. The patient tolerated the procedure well and was transferred to the CV ICU in satisfactory condition. TRANSINT:[id number] Voice Confirmation ID: [id number] DOCUMENT ID: [id number] OPERATIVE REPORT [id number] EULALIA WILLOUGHBY EDWARD MD CC: [id number] DICTATION DATE: 06/14/19912 FILENET P8 DEVELOPER: 06/14/19 1016 ADM IN [facility] [id number] [place] [address]
[2019-06-11 15:21] LABS: HEMATOCRIT 42.7 % (42.0-54.0); MCH 29.5 pg (26.0-34.0); MCHC 32.8 g/dL (31.0-37.0); MCV 90.1 fL (80.0-100.0); MEAN PLATELET VOLUME 10.6 fL (7.4-10.4); RBC 4.74 10x6/uL (4.20-6.10); RDW 14.6 % (11.5-14.5); WBC 5.7 10x3/uL (4.8-10.8)
[2019-06-11 15:38] LABS: APPEARANCE CLEAR (CLEAR); BILIRUBIN NEGATIVE (NEGATIVE); COLOR DK YELLOW (YELLOW); GLUCOSE NEGATIVE (NEGATIVE); KETONE NEGATIVE (NEGATIVE); NITRITE NEGATIVE (NEGATIVE); PROTEIN NEGATIVE (NEGATIVE); SPECIFIC GRAVITY 1.015 (1.005-1.020); UROBILINOGEN NORMAL (NORMAL)
[2019-06-11 15:39] LABS: ALBUMIN 3.8 g/dL (3.4-5.0); APTT 28.9 SECONDS (22.8-39.4); BILIRUBIN - TOTAL 0.72 mg/dL (0.2-1.3); CALCIUM 8.6 mg/dL (8.5-10.1); CARBON DIOXIDE 30.1 mmol/L (21.0-32.0); CREATININE - SERUM 1.1 mg/dL (0.6-1.3); INR 1.1 (0.85-1.17); POTASSIUM - SERUM 4.1 mmol/L (3.5-5.1); PROTEIN - SERUM 7.9 g/dL (6.4-8.2); PROTIME 13.7 SECONDS (11.6-15.0)
[2019-06-14] VITALS (58 sets, daily range): BP systolic 89–134; BP diastolic 45–586; BMI 28.8; BMI 29.4
[2019-06-14] MEDS ORDERED: CLARITIN 10 MG10 MG PO (05:55)
--- NOTE | 2019-06-14 09:21 | NUR ---
0911 PT ARRIVED FROM OR ALERT AND ORIENTED O2 WEANED TO 5L NC, R IJ CVL DRESSING CDI WITH PLASMALYTE INFUSING 30ML/HR, R LAT SIDE CTX2 TO 20CM SUCTION NO AIR LEAK, CRITICORE DRAINING YELLOW URINE, EPIDURAL SITE CDI INFUSING 6ML HOURLY WITH HOUSE CALLS NURSE Q20MIN 3ML, L ART LINE ZEROED, GOOD WAVEFORM, WRIST PROTECTOR IN PLACE
--- NOTE | 2019-06-14 09:42 | NUR ---
SHY NAVARRETE NURSE NOTIFIED OF OCCASIONAL DERECK 58 HR AND THAT PATRICK CANNON APPLIED ON ARRIVAL FOR TEMP OF 34.9C VIA CRITICORE AND UNREADABLE ON ORAL/AXILLARY
--- NOTE | 2019-06-14 12:54 | NUR ---
PO MEDS GIVEN SPACED OUT AND USING ROBIN PER DR SIBLEY
--- NOTE | 2019-06-14 17:25 | NUR ---
REPOSITIONED HOURLY, DENIES PAIN, USES EPIDURAL TRACTOR TECHNICIAN INDEPENDENTLY, AT BEDSIDE, USES IS AND INSTRUCTED TO DO SO 10X HOURLY, CALL LIGHT WITHIN REACH, TOLERATING DINNER AND CLEAR LIQUIDS, WILL CONITNUE TO M ONITOR
--- NOTE | 2019-06-14 19:10 | NUR ---
REPORT RECEIVED, SHIFT ASSESSMENT COMPLETED PER FLOW SHEET. AAOX4. PPP. RT LATERAL CHEST INCISION SITE NOTED, DRESSING C/D/I, CT TO 20 CM SUCTION, NO AIR LEAK. 1 L 02 VIA NC. COUGH/DEEP BREATHING AND USE OF IS ENCOURAGED, COUGH STRONG/NON-PRODUCTIVE, PULLING 2500 ON IS. REPOSITIONED IN BED, TEACHING PROVIDED ON IMPORTANCE OF REPOSITIONING ORDERED BY PHYSICIAN, HE VERBALIZED UNDERSTANDING. TEACHING PROVIDED ON USE OF PROPELLER ENGINEER BUTTON FOR PAIN, HE STATES HE DOES NOT HAVE ANY PAIN. CALL LIGHT AND PROPELLER ENGINEER BUTTON WITHIN REACH. AT BEDSIDE. WILL CONTINUE TO MONITOR.
--- NOTE | 2019-06-14 21:00 | NUR ---
SCHEDULED MEDS GIVEN, WATER PROVIDED, NO TROUBLE SWALLOWING. AT BEDSIDE, PILLOW AND BLANKET PROVIDED TO . PATIENT DENIES PAIN OR NEEDS AT THIS TIME. PULLING [id number] ON IS, COUGH STRONG AND NON-PRODUCTIVE. CALL LIGHT AND GROUP MANAGER BUTTON WITHIN REACH. WILL CONTINUE TO MONITOR.
--- NOTE | 2019-06-14 23:01 | NUR ---
REASSESSMENT COMPLETED PER FLOW SHEET, SEE FOR DETAILS. DENIES PAIN. PULLING 2500 X10 ON IS. COUGH STRONG. REPOSITIONED IN BED. WILL CONTINUE TO MONITOR.
--- NOTE | 2019-06-14 23:07 | NUR ---
BP 89/45. MAP 60. NEOSYNEPHRINE INCREASED, SEE FLOW SHEET FOR DETAILS. WILL CONTINUE TO MONITOR.
[2019-06-15] VITALS (49 sets, daily range): BP systolic 92–121; BP diastolic 47–84; Ht 185.4 cm; Wt 96.5 kg
--- NOTE | 2019-06-15 01:00 | NUR ---
RESTING, REPOSITIONED IN BED. AT BEDSIDE. PATIENT DENIES NEEDS. WILL CONTINUE TO MONITOR.
--- NOTE | 2019-06-15 03:01 | NUR ---
REASSESSMENT COMPLETED PER FLOW SHEET, SEE FOR DETAILS. CALL LIGHT WITHIN REACH.
--- NOTE | 2019-06-15 05:00 | NUR ---
RESTING, NO ACUTE CHANGES NOTED. DENIES NEEDS AT THIS TIME. CALL LIGHT WITHIN REACH.
--- NOTE | 2019-06-15 06:00 | NUR ---
COMPLETE BED BATH GIVEN, COMPLETE BED LINEN CHANGE. WEISS CARE PROVIDED. ASSISSTED WITH BATH. REPOSITIONED IN BED. DENIES NEEDS. CALL LIGHT WITHIN REACH. WILL CONTINUE TO MONITOR.
[2019-06-15 06:37] LABS: HEMATOCRIT 37.6 % (42.0-54.0); HEMOGLOBIN 12.3 g/dL (13.5-17.5); MCH 29.4 pg (26.0-34.0); MCHC 32.7 g/dL (31.0-37.0); MEAN PLATELET VOLUME 10.9 fL (7.4-10.4); RBC 4.18 10x6/uL (4.20-6.10); RDW 14.9 % (11.5-14.5); WBC 7.1 10x3/uL (4.8-10.8)
[2019-06-15 06:43] LABS: ALBUMIN 3.1 g/dL (3.4-5.0); ANION GAP 11.7 mmol/L (8-16); BILIRUBIN - TOTAL 0.87 mg/dL (0.2-1.3); CALCIUM 8.3 mg/dL (8.5-10.1); CARBON DIOXIDE 25.4 mmol/L (21.0-32.0); CREATININE - SERUM 1.3 mg/dL (0.6-1.3); POTASSIUM - SERUM 4.1 mmol/L (3.5-5.1); PROTEIN - SERUM 6.8 g/dL (6.4-8.2)
--- NOTE | 2019-06-15 07:00 | NUR ---
RECEIVED REPORT AT BEDSIDE. PATIENT RESTING IN BED AWAKE ALERT AND ORIENTED. FENTANYL EPIDURAL INFUSION INTACT. CLINICAL SUPPORT ASSOCIATE PUMP IN REACH. ART LINE TO LEFT RADIAL MATCHES CUFF PRESSURE. BP STABLE. RIJ INFUSING PLASMALYTE AT 30ML/HR, NEOSYNEPHRINE 0.2MICROGRAMS/5.9ML/HR. CHEST TO RIGHT SIDE DRAINING SEROSANGUINEOUS FLUID. DRESSING INTACT. RIGHT POSTERIOR INCISION DRESSING CDI. SELINA HOSE AND SCD'S IN USE. CRITICORE WEISS IN PLACE. INSTRUCTED PATIENT TO TURN TO LEFT SIDE TO COUGH AND DEEP BREATH. WILL CHECK ORDERS AND CONTINUE TO MONITOR
--- NOTE | 2019-06-15 08:43 | NUR ---
PATIENT ATE 100% BREAKFAST. TURNED AND INSTRUCTED TO COUGH. STILL ON ROBIN 0.2 MICROGRAM/KG/MIN. WILL TITRATE TOLERATED. HOLDING LOSARTAN FOR NOW. WILL CONTINUE TO MONITOR. VSS
--- NOTE | 2019-06-15 11:12 | NUR ---
CHANGED CHEST TUBE DRESSING IT WAS SATURATED. CLEANED WITH BETA DINE AND DRESSED WITH NEW GUAZE AND TEGADERM. CHANGED LINENS WELL. VSS
--- NOTE | 2019-06-15 13:22 | NUR ---
SYSTOLIC BP DROPPED DOWN TO 80'S. RESTARTED NEOSYNEPHRINE DRIP AT 0.1MCG/KG/MIN. PT OTHERWISE STABLE
--- NOTE | 2019-06-15 14:00 | NUR ---
patient resting in bed c call montemayor in reach. in room. vss
--- NOTE | 2019-06-15 15:56 | NUR ---
TURNED PATIENT TO LEFT SIDE. VSS. DC'S PIV TO LEFT FOREARM.
--- NOTE | 2019-06-15 16:19 | NUR ---
NOTIFIED DR. MENJIVAR THAT FENTANYL EPIDURAL WILL RUN OUT OVER NIGHT. STATED HE WOULD BE BACK LATER TO REFILL.
[2019-06-15 18:08] LABS: ACID FAST SMEAR Negative (()); AFB SPECIMEN PROCESSING Tissue Grinding (())
--- NOTE | 2019-06-15 19:16 | MORECARE ---
CASE MANAGEMENT DISCHARGE SUMMARY PATIENT: EULALIA WILLOUGHBY UNIT: [id number] ADM DATE: 06/14/19 AGE: 54 : 61 SEX: M [facility] AUTHOR: MIGUEL A MESSER PHYSICIAN: REFERRING PHYSICIAN: CINTHIA SIBLEY MD DATE OF SERVICE: 06/15/19 Discharge Plan Patient Name: EULALIA WILLOUGHBY Facility: [facility]:[place] : 1965 Planned Disposition: Home Anticipated Discharge Date: Discharge Date: Expected LOS: Initial Reviewer: [email or web address] Initial Review Date: 06/15/2019 Generated: 06/15/19 8:15 pm Patient Name: EULALIA WILLOUGHBY Page 73137 at 1916 All edits/amendments must be made on the electronic document DICTATION DATE: 06/15/191914 ECHO TECHNOLOGIST: GABRIELA 06/15/191914 RPT#: [id number] DC DATE: STATUS: ADM IN [facility] [address] [place] [address] END OF REPORT
--- NOTE | 2019-06-15 19:23 | MORECARE ---
CASE MANAGEMENT DISCHARGE SUMMARY PATIENT: EULALIA WILLOUGHBY UNIT: [id number] ADM DATE: 06/14/19 AGE: 54 : 61 SEX: M ROOM/BED: D[facility] AUTHOR: GUI,DOC PHYSICIAN: REFERRING PHYSICIAN: CINTHIA SIBLEY MD DATE OF SERVICE: 06/15/19 Discharge Plan Patient Name: EULALIA WILLOUGHBY Facility: [facility]:[place] : 1965 Planned Disposition: Home Anticipated Discharge Date: Discharge Date: Expected LOS: Initial Reviewer: [email or web address] Initial Review Date: 06/15/2019 Generated: 06/15/19 8:23 pm Comments DCP- Discharge Planning Updated by [email or web address]: Cathie Pro on 06/15/19 6:[address] Patient Name: EULALIA WILLOUGHBY Admission Status: Elective Accout number: [id number] Admission Date: 06-14-2019 : 1965 Admission Diagnosis: Attending: CINTHIA SIBLEY Current LOS: 1 Anticipated DC Date: Planned Disposition: Home Primary Insurance: [employer] [facility] Discharge Planning Comments: CM met with patient and spouse (Eva) at bedside after explaining CM role and obtaining verbal consent. Patient lives at home with his Eva and plans to return there upon discharge. Patient feels this would be a safe discharge. CM discussed availability / needs of home health and medical equipment. Patient denies any discharge needs at this time. Patient states he will have his drive him home upon discharge. CM will continue to follow and assist as needed with discharge planning / needs. Supervisor Blood: Cathie Pro DCPIA - Discharge Planning Initial Assessment Updated by [email or web address]: Cathie Pro on 06/15/19 7:16 pm * Is the patient Alert and Oriented? Yes * How many steps to enter\exit or inside your home? * PCP AHMET * Pharmacy [facility] * Preadmission Environment Home with Family * ADLs Independent * Equipment Cane * List name and contact numbers for known caregivers / representatives who currently or will assist patient after discharge: EVA - - [phone] * Verbal permission to speak to the caregivers and representatives has been obtained from the patient. Yes * Community resources currently utilized None * Additional services required to return to the preadmission environment? No * Can the patient safely return to the preadmission environment? Yes * Has this patient been hospitalized within the prior 30 days at any hospital? No Last DP export: 06/15/19 6:16 p Patient Name: EULALIA WILLOUGHBY Page 93548 at 1923 All edits/amendments must be made on the electronic document DICTATION DATE: 06/15/191922 NUT STEAMER: GABRIELA 06/15/191922 RPT#: [id number] DC DATE: STATUS: ADM IN [facility] [address] [place] [address] END OF REPORT
--- NOTE | 2019-06-15 20:08 | NUR ---
PT RECEIVED SITTING UP IN BED. ALERT AND ORIENTED. NO NEEDS OF COMPLAINTS NOTED. IN CHAIR AT BEDSIDE. VSS. CHEST TUBE PATENT DRAINAGE NOTED TO DRESSING. WEISS PATENT. CALL LIGHT IN REACH. WILL CONTINUE TO OBSERVE.
--- NOTE | 2019-06-15 20:50 | NUR ---
PT RECEIVED SCHEDULED MEDICATIONS, NO DIFFICULTY NOTED. NO NEEDS MADE KNOWN. CALL LIGHT IN REACH. WILL CONTINUE TO OBSERVE.
--- NOTE | 2019-06-15 23:17 | NUR ---
REASSESSMENT COMPLETED, SEE FLOW SHEET. CALL LIGHT IN REACH. WILL CONTINUE TO OBSERVE.
[2019-06-16] VITALS (24 sets, daily range): BP systolic 91–123; BP diastolic 48–72
--- NOTE | 2019-06-16 01:02 | NUR ---
PT RESTING WITH EYES CLOSED AND CHEST RISING. EASILY AWOKEN TO VERBAL STIMULI. VSS. CALL LIGHT IN REACH. WILL CONTINUE TO OBSERVE.
--- NOTE | 2019-06-16 02:40 | NUR ---
CRITICORE TEMP READING NOTED TO FLUCTUATE FROM 37.6 TO 38.3 UP AND DOWN FOR A FEW SECONDS AND STOPPED AT 38.2. TEMP CHECKED ORALLY WITH 99.6 READING NOTED. WILL CONTINUE TO OBSERVE.
--- NOTE | 2019-06-16 03:32 | NUR ---
REASSESSMENT COMPLETED, SEE FLOW SHEET. NO NEEDS MADE KNOWN. VSS. WILL CONTINUE TO OBSERVE
[2019-06-16 05:40] LABS: HEMATOCRIT 36.3 % (42.0-54.0); HEMOGLOBIN 11.8 g/dL (13.5-17.5); MCH 29.4 pg (26.0-34.0); MCHC 32.5 g/dL (31.0-37.0); MCV 90.3 fL (80.0-100.0); MEAN PLATELET VOLUME 10.6 fL (7.4-10.4); RBC 4.02 10x6/uL (4.20-6.10); RDW 14.8 % (11.5-14.5); WBC 8.8 10x3/uL (4.8-10.8)
[2019-06-16 06:20] LABS: ALBUMIN 2.9 g/dL (3.4-5.0); ANION GAP 10.7 mmol/L (8-16); BILIRUBIN - TOTAL 0.64 mg/dL (0.2-1.3); CALCIUM 8.1 mg/dL (8.5-10.1); CARBON DIOXIDE 27.2 mmol/L (21.0-32.0); CREATININE - SERUM 1.2 mg/dL (0.6-1.3); POTASSIUM - SERUM 3.9 mmol/L (3.5-5.1); PROTEIN - SERUM 6.6 g/dL (6.4-8.2)
--- NOTE | 2019-06-16 07:04 | NUR ---
ASSIST WITH BATH AND LINEN CHANGE. PT TOLERATED WELL.
--- NOTE | 2019-06-16 08:04 | NUR ---
TEMP 101.1, URINE CULT AND BC ORDERED.
--- NOTE | 2019-06-16 09:09 | NUR ---
CTUBE DCD BY CARDIOVASCULAR NURSE SHY. ORE FC READS 101.5 TEMP. IS INSTRUCTED AND PT VERB UNCONTROLLED PAIN WITH IS. PO PAIN MED ORDERED AND GIVEN AND EPIDURAL ORDERED TO BE DCD.
[2019-06-16] MEDS ORDERED: PERCOCET 10-321 EAC1 PO (12:28)
--- NOTE | 2019-06-16 12:35 | NUR ---
SPOKE TO DR GUERRERO AND REC'D ORDERS FOR DC.
[2019-06-16] MEDS ORDERED: MUCINEX DM ER1 EAC1 PO (12:39)
[2019-06-16] MEDS ORDERED: FLUTICASONE PRO16 GM NASAL (12:49)
[2019-06-16] MEDS ORDERED: TESSALON PERLE100 MG PO (12:49)
[2019-06-16] MEDS ORDERED: SINGULAIR10 MG PO (12:49)
--- NOTE | 2019-06-16 13:08 | NUR ---
PT AMB ENTIRE LENGTH OF VILLARREAL IN CVICU. J LUIS WELL. STEADY GAIT.
[2019-06-16 17:08] LABS: FUNGUS STAIN Final report (())
--- NOTE | 2019-06-16 18:48 | NUR ---
1600- PT SITTING UP IN CHAIR.
--- NOTE | 2019-06-16 18:48 | NUR ---
PT UP AD TERESA. AT BS. VSS.
--- NOTE | 2019-06-16 19:47 | NUR ---
PT RECEIVED WITH EYES OPEN WATCHING TV. ALERT AND ORIENTED X3. ICE PACK TO RIGHT CAROTID WITH DRESSING C/D/I WITH NO SWELLING NOTED. VIKTORIA DRAIN PATENT AND COMPRESSED. NO COMPLAINTS OF PAIN AT THIS TIME. CRITACORE CATHETER WITH YELLOW URINE NOTED. CVP AND A-LINE ZEROED. VSS. NITRO AT 16.67MCG/MIN. WILL CONTINUE TO OBSERVE.
--- NOTE | 2019-06-16 19:56 | NUR ---
PT RECEIVE WITH EYES CLOSED AND CHEST RISING. EASILY AWOKEN TO ENTRY OF ROOM. DENIES PAIN. DRESSING TO RIGHT LATERAL CHEST C/D/I. NO NEEDS MADE KNOWN. SLEEPING IN CHAIR AT BEDSIDE. WILL CONTINUE TO OBSERVE.
--- NOTE | 2019-06-16 21:30 | NUR ---
SCHEDULED MEDICATIONS GIVEN, TOLERATED WELL. CALL LIGHT IN REACH. WILL CONTINUE TO OBSERVE.
--- NOTE | 2019-06-16 23:05 | NUR ---
SPO2 DROPING TO MID 80'S AND RETURNS TO MID 90'S FREQUENTLY. PLACE ON N/C 2LPM. REASSESSMENT COMPLETED, SEE FLOW SHEET. CALL LIGHT IN REACH. WILL CONTINUE TO OBSERVE.
[2019-06-17] VITALS (9 sets, daily range): BP systolic 88–102; BP diastolic 52–61
--- NOTE | 2019-06-17 01:12 | NUR ---
PT RESTING WITH EYES CLOSED AND CHEST RISING. VSS. WILL CONTINUE TO OBSERVE.
--- NOTE | 2019-06-17 04:23 | NUR ---
PT UP TO RESTROOM STEADY GAIT NOTED. BACK IN BED AND RECONNECTED TO MONITOR. WILL CONTINUE TO OBSERVE.
[2019-06-17 07:11] LABS: HEMATOCRIT 36.1 % (42.0-54.0); HEMOGLOBIN 11.7 g/dL (13.5-17.5); MCH 29.3 pg (26.0-34.0); MCHC 32.4 g/dL (31.0-37.0); MCV 90.5 fL (80.0-100.0); MEAN PLATELET VOLUME 10.9 fL (7.4-10.4); RBC 3.99 10x6/uL (4.20-6.10); RDW 14.7 % (11.5-14.5)
[2019-06-17 07:13] LABS: WBC 11.4 10x3/uL (4.8-10.8)
[2019-06-17 07:31] LABS: ALBUMIN 2.8 g/dL (3.4-5.0); ALKALINE PHOSPHATASE 61 U/L (46-116); ALT (SGPT) 15 U/L (10-68); BILIRUBIN - TOTAL 1.49 mg/dL (0.2-1.3); CALC OSMOLALITY 271 mosm/kg (275-300); CALCIUM 7.9 mg/dL (8.5-10.1); CARBON DIOXIDE 29.5 mmol/L (21.0-32.0); CHLORIDE - SERUM 100 mmol/L (98-107); GLUCOSE 99 mg/dL (74-106); POTASSIUM - SERUM 3.9 mmol/L (3.5-5.1); PROTEIN - SERUM 6.7 g/dL (6.4-8.2); SODIUM 135 mmol/L (136-145); UREA NITROGEN 18 mg/dL (7-18); eGFR NON AFRICAN AMERICAN 82 mL/min (90-120)
--- NOTE | 2019-06-17 07:39 | NUR ---
REPORT RECIEVED, AAOx4, UP TO CHAIR. RIGHT IJ SALINE LOCK, DRESING CDI, PATIENT HAS INTERNAL PACEMAKER AND DEFIB. INCISIONAL SCAR ON LEFT LATERAL CHEST. GAIT STEADY, NO COMPLAINTS OF PAIN AT THIS TIME.
--- NOTE | 2019-06-17 09:00 | NUR ---
PT SITTING IN CHAIR WITH BREAKFAST TRAY, DENIES PAIN. VITALS STABLE, WILL CONTINUE TO MONITOR
--- NOTE | 2019-06-17 18:04 | MORECARE ---
CASE MANAGEMENT DISCHARGE SUMMARY PATIENT: EULALIA WILLOUGHBY UNIT: [id number] ADM DATE: 06/14/19 AGE: 54 : [birth year] SEX: M ROOM/BED: D.[facility] AUTHOR: GUI,DOC PHYSICIAN: REFERRING PHYSICIAN: CINTHIA SIBLEY MD DATE OF SERVICE: 06/17/19 Discharge Plan Patient Name: EULALIA WILLOUGHBY Facility: [facility]:[place] : 1965 Planned Disposition: Home Anticipated Discharge Date: Discharge Date: 06/17/2019 Expected LOS: Initial Reviewer: [email or web address] Initial Review Date: 06/15/2019 Generated: 06/17/19 7:04 pm DCP- Discharge Planning Updated by [email or web address]: Cathie Pro on 06/15/19 6:[address] Patient Name: EULALIA WILLOUGHBY Admission Status: Elective Accout number: [id number] Admission Date: 06-14-2019 : 1965 Admission Diagnosis: Attending: CINTHIA SIBLEY Current LOS: 1 Anticipated DC Date: Planned Disposition: Home Primary [facility] Discharge Planning Comments: CM met with patient and spouse (Eva) at bedside after explaining CM role and obtaining verbal consent. Patient lives at home with his Eva and plans to return there upon discharge. Patient feels this would be a safe discharge. CM discussed availability / needs of home health and medical equipment. Patient denies any discharge needs at this time. Patient states he will have his drive him home upon discharge. CM will continue to follow and assist as needed with discharge planning / needs. Web Applications Architect: Cathie Pro DCPIA - Discharge Planning Initial Assessment Updated by [email or web address]: Cathie Pro on 06/15/19 7:16 pm * Is the patient Alert and Oriented? Yes * How many steps to enter\exit or inside your home? * PCP AHMET * Pharmacy [facility] * Preadmission Environment Home with Family * ADLs Independent * Equipment Cane * List name and contact numbers for known caregivers / representatives who currently or will assist patient after discharge: EVA - - [phone] * Verbal permission to speak to the caregivers and representatives has been obtained from the patient. Yes * Community resources currently utilized None * Additional services required to return to the preadmission environment? No * Can the patient safely return to the preadmission environment? Yes * Has this patient been hospitalized within the prior 30 days at any hospital? No Last DP export: 06/15/19 6:23 p Patient Name: EULALIA WILLOUGHBY Page 29130 at 1804 All edits/amendments must be made on the electronic document DICTATION DATE: 06/17/191802 TOLL TRANSMISSION WORKER: GABRIELA 06/17/191802 RPT#: [id number] DC DATE:06/17/19 STATUS: DIS IN [facility] [address] [place] [address] END OF REPORT
--- NOTE | 2019-06-18 09:15 | NUR ---
PHONE CALL BACK FROM PATIENT, NEVER RECIEVED RESPIRATORY MEDS, SCRIPTS CALLED INTO [facility] FOR 30 DAY SUPPLY FOR TESSALON PERLE, FLUTICASONE PROPIONATE SPRAY, MUCINEX, AND SINGULAIR PER DR VILLARREAL ORDERS. SPOKE WITH PHARMACIST EMERITA
== END 2019-06-17 12:05 | disposition home or self-care (01) | DRG 167 ==
LOC: D.SDCHOLD 06-14 05:00 → D.CVICU 06-14 05:00 → D.SDCHOLD 06-14 07:30 → D.CVICU 06-14 09:06
PROVIDERS: ADMIT Internal Medicine Cardiovascular Disease; ATTEND Internal Medicine Cardiovascular Disease
PROC: 0BBF4ZX Excision of Right Lower Lung Lobe, Percutaneous Endoscopic Approach, Diagnostic (ICD-10-PCS; principal; 2019-06-14 07:30)
PROC: 0BBD4ZX Excision of Right Middle Lung Lobe, Percutaneous Endoscopic Approach, Diagnostic (ICD-10-PCS; 2019-06-14 07:30)
DX: J84.10 Pulmonary fibrosis, unspecified (principal); I50.20 Unspecified systolic (congestive) heart failure; K21.9 Gastro-esophageal reflux disease without esophagitis; E03.9 Hypothyroidism, unspecified; I48.91 Unspecified atrial fibrillation; I25.10 Atherosclerotic heart disease of native coronary artery without angina pectoris; R05 Cough; J30.9 Allergic rhinitis, unspecified; L40.9 Psoriasis, unspecified; Z95.0 Presence of cardiac pacemaker; D64.9 Anemia, unspecified; D69.6 Thrombocytopenia, unspecified

== ENCOUNTER → 2019-07-01 13:21 | Outpatient (CLI) | payer BC ==
[2019-06-15 09:14] VITALS: BMI 28.0
[~2019-07-01 13:21] MED LIST changes: +CLARITIN 10 MG10 MG PO; +FLUTICASONE PRO16 GM NASAL; +MUCINEX DM ER1 EAC1 PO; +PERCOCET 10-321 EAC1 PO; +SINGULAIR10 MG PO; +TESSALON PERLE100 MG PO
== END | disposition home or self-care (01) ==
LOC: D.RAD 13:21
PROVIDERS: ATTEND Internal Medicine Cardiovascular Disease
DX: Z98.890 Other specified postprocedural states (principal)

== ENCOUNTER → 2019-08-03 08:16 | Outpatient (CLI) | payer BC ==
[2019-06-15 09:14] VITALS: BMI 28.0
== END | disposition home or self-care (01) ==
LOC: D.RT 08:16
PROVIDERS: ATTEND Internal Medicine Pulmonary Disease
DX: J84.10 Pulmonary fibrosis, unspecified (principal)

== ENCOUNTER → 2019-09-28 14:33 | Outpatient (CLI) | payer BC ==
[2019-06-15 09:14] VITALS: BMI 28.0
[~2019-09-28 14:33] MED LIST changes: +DURICEF500 MG PO; +HYDROCODON-ACE1 EAC7 PO; +PREDNISONE1 MG PO; +SULFAMETHOXAZOL1 TA2 PO
== END | disposition home or self-care (01) ==
LOC: D.MRI 14:33
PROVIDERS: ATTEND Orthopaedic Surgery
DX: E83.59 Other disorders of calcium metabolism (principal)

== ENCOUNTER 2019-10-01 10:15 | Day surgery (SDC) | payer BC ==
[~2019-10-01] VITALS: Ht 185.4 cm; Wt 98.9 kg
[~2019-10-01 10:15] MED LIST changes: -DURICEF500 MG PO; -HYDROCODON-ACE1 EAC7 PO; -PREDNISONE1 MG PO; -SULFAMETHOXAZOL1 TA2 PO
[2019-10-01 10:59] LABS: BASOPHILS 0.1 % (0-2); EOSINOPHILS 0.1 % (0-7); HEMATOCRIT 47.6 % (42.0-54.0); HEMOGLOBIN 15.4 g/dL (13.5-17.5); IMMATURE GRANULOCYTES 2.6 % (0-5); LYMPHOCYTES 9.4 % (15-50); MCH 29.4 pg (26.0-34.0); MCHC 32.4 g/dL (31.0-37.0); MEAN PLATELET VOLUME 9.7 fL (7.4-10.4); MONOCYTES 5.8 % (2-11); PLATELET COUNT 150 10x3/uL (130-400); RBC 5.23 10x6/uL (4.20-6.10); RDW 14.9 % (11.5-14.5); WBC 10.2 10x3/uL (4.8-10.8)
[2019-10-01 11:12] LABS: CALC OSMOLALITY 284 mosm/kg (275-300); CALCIUM 9.1 mg/dL (8.5-10.1); CARBON DIOXIDE 34.5 mmol/L (21.0-32.0); CHLORIDE - SERUM 103 mmol/L (98-107); GLUCOSE 92 mg/dL (74-106); POTASSIUM - SERUM 4.1 mmol/L (3.5-5.1); SODIUM 140 mmol/L (136-145); UREA NITROGEN 28 mg/dL (7-18); eGFR NON AFRICAN AMERICAN 82 mL/min (90-120)
[2019-10-01 13:09] VITALS: BP 132/84; Ht 185.4 cm; Wt 98.9 kg
[2019-10-01] MEDS ORDERED: SULFAMETHOXAZOL1 TA2 PO (13:28)
[2019-10-01] MEDS ORDERED: PREDNISONE1 MG PO (13:29)
[2019-10-01] MEDS ORDERED: DURICEF500 MG PO (14:36)
[2019-10-01] MEDS ORDERED: HYDROCODON-ACE1 EAC7 PO (14:36)
--- NOTE | 2019-10-01 16:15 | NUR ---
PATIENT AMBULATES TO BATHROOM AND VOIDS LARGE AMOUNT IN TOILET, AMBULATES WITHOUT DIZZINESS OR UNSTEADINESS. DISCHARGE INSTRUCTIONS REVIEWED WITH PATIENT AND SPOUSE, DISCHARGED HOME VIA WHEELCHAIR TO PRIVATE VEHICLE AT 1620
--- NOTE | 2019-10-02 06:25 | OP ---
PATIENT NAME: EULALIA MORGAN MEDICAL RECORD: [id number] :[birth year] LOCATION:[facility] ADMISSION DATE: SURGEON: PRETTY GARCIA DO DATE OF OPERATION: 10/01/2019 PROCEDURE PERFORMED: Excision of mass, right index finger. PREOPERATIVE DIAGNOSIS: Index finger mass of the right hand. POSTOPERATIVE DIAGNOSIS: Index finger mass of the right hand. INDICATIONS: Mr. Morgan is a 54-year-old male who has had a mass on his right index finger for quite some time. He was seen in my office and x-rays were taken and seen to have a calcification in the tip of the index finger distal tip. Again, MRI with and without contrast, which did show calcification likely a parathyroid problems that had been getting larger on him and he was tired of dealing with the pain and told me to excise it and then sent it off to the lab for biopsy and see what it is. He was aware of the risks including infection, bleeding, amputation of the finger, need for further surgery, and even . He signed the consent. SURGEON: Pretty Garcia DO DESCRIPTION OF PROCEDURE: The patient received a digital block by me in the preoperative area with 2% lidocaine at the base of the index finger with approximately 3 mL going on the radial and ulnar side. He was then taken to the operative suite, laid in supine position, given 2 grams of Ancef preoperatively. The right upper extremity was then prepped and draped in sterile fashion. A timeout was performed and everyone was in agreement with the correct side, site, patient and procedure. He was then given slight sedation by anesthesia. An incision was made at the distal tip longitudinally on the palmar side. Careful dissection was then made down after a finger tourniquet was placed and was on for 15 minutes. Dissection was made down showing out all of the calcification. It was put in a specimen cup and sent to the lab. It was then irrigated. Any further calcification was removed and the tourniquet was removed and site was closed with 5-0 nylon in a simple fashion. Adaptic, 4 x 4 and Coban was then lightly wrapped on the finger. He was awakened and taken to recovery in stable condition. BLOOD LOSS: Minimal. COMPLICATIONS: None. TRANSINT:[id number] Voice Confirmation ID: [id number] DOCUMENT ID: [id number] PRETTY GARCIA, at 0625 CC: [id number] DICTATION DATE: 10/01/19 1434 LITIGATION PARTNER: 10/01/19 1553 [facility] [place] 10/01/19 [address] [place] [address]
== END 2019-10-01 16:20 | disposition home or self-care (01) ==
LOC: D.OPS 10:15
PROVIDERS: Anesthesiology; ATTEND Orthopaedic Surgery
DX: R22.31 Localized swelling, mass and lump, right upper limb (principal)

== ENCOUNTER → 2019-11-08 09:12 | Outpatient (CLI) | payer BC ==
[2019-10-01 13:09] VITALS: BMI 28.8
[~2019-11-08 09:12] MED LIST changes: +DURICEF500 MG PO; +HYDROCODON-ACE1 EAC7 PO; +PREDNISONE1 MG PO; +SULFAMETHOXAZOL1 TA2 PO
== END | disposition home or self-care (01) ==
LOC: D.CT 09:12 → D.RT 09:30 → D.CT 10:00
PROVIDERS: ATTEND Internal Medicine Pulmonary Disease
DX: J84.10 Pulmonary fibrosis, unspecified (principal)

== ENCOUNTER → 2019-11-25 08:49 | Outpatient (CLI) | payer BC ==
[2019-10-01 13:09] VITALS: BMI 28.8
== END | disposition home or self-care (01) ==
LOC: D.RT 08:49
PROVIDERS: ATTEND Internal Medicine Pulmonary Disease
DX: J84.10 Pulmonary fibrosis, unspecified (principal)

== ENCOUNTER → 2019-11-30 11:59 | Outpatient (CLI) | payer BC ==
[2019-10-01 13:09] VITALS: BMI 28.8
[2019-11-30 12:53] LABS: BASOPHILS 0.5 % (0-2); EOSINOPHILS 4.1 % (0-7); HEMATOCRIT 44.9 % (42.0-54.0); HEMOGLOBIN 14.3 g/dL (13.5-17.5); IMMATURE GRANULOCYTES 1.1 % (0-5); LYMPHOCYTES 15.4 % (15-50); MCH 29.7 pg (26.0-34.0); MCHC 31.8 g/dL (31.0-37.0); MCV 93.3 fL (80.0-100.0); MONOCYTES 9.9 % (2-11); RBC 4.81 10x6/uL (4.20-6.10); RDW 15.4 % (11.5-14.5); WBC 8.5 10x3/uL (4.8-10.8)
[2019-11-30 12:55] LABS: PLATELET COUNT 222 10x3/uL (130-400)
[2019-11-30 13:15] LABS: ALBUMIN 3.8 g/dL (3.4-5.0); ALKALINE PHOSPHATASE 59 U/L (46-116); ALT (SGPT) 39 U/L (10-68); BILIRUBIN - TOTAL 0.72 mg/dL (0.2-1.3); CALC OSMOLALITY 282 mosm/kg (275-300); CALCIUM 9.1 mg/dL (8.5-10.1); CARBON DIOXIDE 28.1 mmol/L (21.0-32.0); CHLORIDE - SERUM 101 mmol/L (98-107); GLUCOSE 89 mg/dL (74-106); POTASSIUM - SERUM 4.2 mmol/L (3.5-5.1); PROTEIN - SERUM 7.7 g/dL (6.4-8.2); SODIUM 140 mmol/L (136-145); UREA NITROGEN 26 mg/dL (7-18); eGFR NON AFRICAN AMERICAN 82 mL/min (90-120)
[2019-12-02 07:08] LABS: HEP B CORE AB TOTAL Negative (Negative); HEPATITIS C ANTIBODY <0.1 S/CO RAT (0.0-0.9)
== END | disposition home or self-care (01) ==
LOC: D.LABREF 11:59
PROVIDERS: ATTEND Internal Medicine Pulmonary Disease
DX: D86.9 Sarcoidosis, unspecified (principal)

== ENCOUNTER → 2019-12-22 13:30 | Outpatient (CLI) | payer BC ==
[2019-10-01 13:09] VITALS: BMI 28.8
[2019-12-22 13:57] LABS: BASOPHILS 0.1 % (0-2); EOSINOPHILS 0.2 % (0-7); HEMATOCRIT 48.4 % (42.0-54.0); HEMOGLOBIN 15.9 g/dL (13.5-17.5); IMMATURE GRANULOCYTES 1.7 % (0-5); LYMPHOCYTES 10.8 % (15-50); MCH 30.6 pg (26.0-34.0); MCHC 32.9 g/dL (31.0-37.0); MCV 93.1 fL (80.0-100.0); MEAN PLATELET VOLUME 9.8 fL (7.4-10.4); MONOCYTES 7.3 % (2-11); NEUTROPHILS 79.9 % (40-80); PLATELET COUNT 167 10x3/uL (130-400); RDW 14.3 % (11.5-14.5); WBC 11.7 10x3/uL (4.8-10.8)
[2019-12-22 14:11] LABS: ANION GAP 8.3 mmol/L (8-16); BILIRUBIN - TOTAL 0.83 mg/dL (0.2-1.3); CALCIUM 9.4 mg/dL (8.5-10.1); CARBON DIOXIDE 35.6 mmol/L (21.0-32.0); CREATININE - SERUM 1.2 mg/dL (0.6-1.3); POTASSIUM - SERUM 3.9 mmol/L (3.5-5.1); PROTEIN - SERUM 7.9 g/dL (6.4-8.2)
== END | disposition home or self-care (01) ==
LOC: D.LAB 13:30
PROVIDERS: ATTEND Internal Medicine Pulmonary Disease
DX: J84.10 Pulmonary fibrosis, unspecified (principal)

== ENCOUNTER → 2020-02-04 13:45 | Outpatient (CLI) | payer BC ==
[2019-10-01 13:09] VITALS: BMI 28.8
[2020-02-04 14:22] LABS: BASOPHILS 0.5 % (0-2); EOSINOPHILS 4.7 % (0-7); HEMATOCRIT 42.9 % (42.0-54.0); IMMATURE GRANULOCYTES 0.8 % (0-5); LYMPHOCYTES 17.4 % (15-50); MCH 30.8 pg (26.0-34.0); MCHC 32.6 g/dL (31.0-37.0); MCV 94.3 fL (80.0-100.0); MEAN PLATELET VOLUME 9.8 fL (7.4-10.4); MONOCYTES 9.2 % (2-11); NEUTROPHILS 67.4 % (40-80); RBC 4.55 10x6/uL (4.20-6.10); WBC 6.2 10x3/uL (4.8-10.8)
[2020-02-04 14:24] LABS: PLATELET COUNT 205 10x3/uL (130-400)
[2020-02-04 14:36] LABS: ALBUMIN 3.7 g/dL (3.4-5.0); ANION GAP 11.1 mmol/L (8-16); BILIRUBIN - TOTAL 0.52 mg/dL (0.2-1.3); CARBON DIOXIDE 29.9 mmol/L (21.0-32.0); CREATININE - SERUM 1.3 mg/dL (0.6-1.3); PROTEIN - SERUM 7.2 g/dL (6.4-8.2)
== END | disposition home or self-care (01) ==
LOC: D.LAB 13:45
PROVIDERS: ATTEND Internal Medicine Pulmonary Disease
DX: J84.10 Pulmonary fibrosis, unspecified (principal)

== ENCOUNTER → 2020-03-16 08:02 | Outpatient (CLI) | payer BC ==
[2019-10-01 13:09] VITALS: BMI 28.8
== END | disposition home or self-care (01) ==
LOC: D.HCCECHO 08:02
PROVIDERS: ATTEND Internal Medicine Cardiovascular Disease
DX: I25.10 Atherosclerotic heart disease of native coronary artery without angina pectoris (principal); I42.9 Cardiomyopathy, unspecified

== ENCOUNTER → 2020-05-12 10:41 | Outpatient (CLI) | payer BC ==
[2019-10-01 13:09] VITALS: BMI 28.8
== END | disposition home or self-care (01) ==
LOC: D.LABREF 10:41
PROVIDERS: ATTEND Internal Medicine Pulmonary Disease
DX: Z11.59 Encounter for screening for other viral diseases (principal)

== ENCOUNTER → 2020-05-15 09:04 | Outpatient (CLI) | payer BC ==
[2019-10-01 13:09] VITALS: BMI 28.8
== END | disposition home or self-care (01) ==
LOC: D.RT 05-10 09:00 → D.CT 05-10 10:00 → D.RT 09:04
PROVIDERS: ATTEND Internal Medicine Pulmonary Disease
DX: D86.9 Sarcoidosis, unspecified (principal)

== ENCOUNTER → 2020-05-16 14:56 | Outpatient (CLI) | payer BC ==
[2019-10-01 13:09] VITALS: BMI 28.8
== END | disposition home or self-care (01) ==
LOC: D.CT 14:56
PROVIDERS: ATTEND Internal Medicine Cardiovascular Disease
DX: I70.213 Atherosclerosis of native arteries of extremities with intermittent claudication, bilateral legs (principal)

== ENCOUNTER → 2020-06-12 14:22 | Outpatient (CLI) | payer BC ==
[2019-10-01 13:09] VITALS: BMI 28.8
== END | disposition home or self-care (01) ==
LOC: D.US 14:00
PROVIDERS: ATTEND Internal Medicine Cardiovascular Disease
DX: R42 Dizziness and giddiness (principal)

== ENCOUNTER → 2020-08-07 08:49 | Outpatient (CLI) | payer BC ==
[2019-10-01 13:09] VITALS: BMI 28.8
== END | disposition home or self-care (01) ==
LOC: D.RT 08:49
PROVIDERS: ATTEND Nurse Practitioner
DX: I48.91 Unspecified atrial fibrillation (principal); I05.9 Rheumatic mitral valve disease, unspecified; I25.10 Atherosclerotic heart disease of native coronary artery without angina pectoris; I42.9 Cardiomyopathy, unspecified

== ENCOUNTER → 2020-08-15 15:05 | Outpatient (CLI) | payer BC ==
[2019-10-01 13:09] VITALS: BMI 28.8
== END | disposition home or self-care (01) ==
LOC: D.RAD 15:05
PROVIDERS: ATTEND Internal Medicine Pulmonary Disease
DX: J44.9 Chronic obstructive pulmonary disease, unspecified (principal)

== ENCOUNTER → 2021-02-09 12:59 | Outpatient (CLI) | payer BC ==
[2020-11-17 06:33] VITALS: BMI 21.9
[~2021-02-09 12:59] MED LIST changes: +IPRAT-ALBUT 0.5-3 ML UPD; +IPRATROPIUM BRO30 M1 NASAL; +METOLAZONE2.5 MG PO
== END | disposition home or self-care (01) ==
LOC: D.US 12:59
PROVIDERS: ATTEND Surgery
DX: I87.2 Venous insufficiency (chronic) (peripheral) (principal)

== ENCOUNTER → 2021-02-21 14:34 | Outpatient (CLI) | payer BC ==
[2020-11-17 06:33] VITALS: BMI 21.9
== END | disposition home or self-care (01) ==
LOC: D.MRI 14:34
PROVIDERS: ATTEND Clinical Nurse Specialist Family Health
DX: M25.522 Pain in left elbow (principal)

== ENCOUNTER 2021-03-06 09:04 | Inpatient (IN) | payer BC ==
[~2021-03-06] VITALS: Ht 185.4 cm; Wt 107.7 kg
--- NOTE | ~2021-03-06 | HEMODYNAMI ---
PATIENT:EULALIA WILLOUGHBY MEDICAL RECORD: [id number] : [birth year] [id number] ADMISSION DATE: 03/07/21 Generatedon:18:47 Patient name: EULALIA WILLOUGHBY Patient #: [id number] SSN: [id number] : 1965 Date of study: 03/12/2021 Page: Of Hemodynamic Procedure Report Patient Data Patient Demographics Procedure consent was obtained First Name: EULALIA Gender: Male Last Name: CASE : 1965 Patient #: [id number] Age: 56 year(s) Race: SSN: [id number] Additional ID: [id number] Contact details Address: [address] [address] State: [place] City: [place] Zip code: [address] Past Medical History Allergies: No known allergies Admission Admission Data Admission Date: 03/07/2021 Admission Time: 12:10 Arrival Date: 03/12/2021 Arrival Time: 0:00 Admit Source: Other [facility] #: [id number] Room #: 2122 Height (in.): 73 BSA: 2.23 (m2) Height (cm.): 185.42 BMI: 28.82 (kg/m2) Weight (lbs.): 218.46 Weight (kg.): 99.09 Lab Results Lab Result Date: 03/12/2021 Lab Result Time: 0:00 Biochemistry Name Units Result Min Max BUN mg/dl 18 --(---*)-- 7 18 Creatinine mg/dl 1.3 --(---*)-- 0.6 1.3 eGFR ml/min 60 *-(----)-- 90 120 NONAFRICAN CBC Name Units Result Min Max Hematocrit % 31.8 *-(----)-- 42 54 Hemoglobin g/dl 10 *-(----)-- 13.5 17.5 Procedure Procedure Types Cath Procedure Diagnostic Procedure LHC LHC w/Coronaries Intra-Aortic Balloon Pump Sedation Charges Moderate Sedation 25-39 minutes Procedure Description Procedure Date Procedure Date: 03/12/2021 Procedure Start Time: 8:08 Procedure End Time: 8:37 Procedure Staff Name Function Tacos Coronado MD Performing Physician Madi Lemos RN Nurse Marlin Gonsalez RT Scrub Antoinette Interiano RT Monitor Procedure Data Cath Procedure Fluoroscopy Diagnostic fluoroscopy Total fluoroscopy Time: 1.8 time: 1.8 min min Diagnostic fluoroscopy Total fluoroscopy dose: 553 dose: 553 mGy mGy Contrast Material Contrast Material Type Amount (ml) Isovue 370 46 Entry Location Entry Primary Successful Side Size Upsize Upsize Entry Closure Succes sful Closure Location (Fr) 1 (Fr) 2 (Fr) Remarks Device Remarks Femoral Right 5 Fr 8 Fr artery Estimated blood loss: 10 ml Diagnostic catheters Device Type Used For End Catheter Placement MULTIPACK JL 4.0 5Fr Procedure catheter MULTIPACK 3DRC 5Fr Procedure catheter MULTIPACK Pigtail 5 Fr Procedure catheter Procedure Complications No complications Procedure Medications Medication Administration Route Dosage Oxygen etCO2 Nasal cannula 2 l/min Zofran I.V. 4 mg 0.9% NaCl I.V. 100 ml/hr Lidocaine 2% added to field 20 Heparin Flush Bag added to field 2 bags (1000units/500ml NS) unlisted medication I.V. drip 360 Versed I.V. 0.5 mg Fentanyl I.V. 25 mcg Oxygen NRB 16 l/min Heparin Drip I.V. drip 1000 units/hr (83868pvbqi/250 D5W) Hemodynamics Rest BSA: 2.23 (m2) HGB: 10 (g/dl) O2 Consumption: Estimated: 269.1 (ml/min) O2 Consu mption indexed: Estimated:120.67 (ml/min/m) Heart Rate: 77 (bpm) Pressure Samples Time Site Value (mmHg) Purpose Heart Use Rate(bpm) 8:14 LV 60/13,4 Snapshot 68 Snapshots Pre Cath Intra NCS Post Cath Vital Signs Time Heart Resp SPO2 etCO2 NIBP (mmHg) Rhythm Pain Sedation Rate (ipm) (%) (mmHg) Status Level (bpm) 7:55:24 77 30 98 0 128/90(108) NSR 0 (11) 10(A) , No pain 7:59:39 74 30 100 23.8 129/94(109) NSR 0 (11) 10(A) , No pain 8:03:41 73 28 100 0 108/88(100) NSR 0 (11) 10(A) , No pain 8:07:45 72 21 90 1.4 109/79(95) NSR 0 (11) 10(A) , No pain 8:12:56 70 24 100 8.2 109/77(93) NSR 0 (11) 10(A) , No pain 8:18:10 70 29 100 0 112/75(95) NSR 0 (11) 10(A) , No pain 8:22:54 71 37 100 8.9 113/93(102) NSR 0 (11) 10(A) , No pain 8:27:43 71 23 100 0.7 125/84(103) NSR 0 (11) 10(A) , No pain 8:32:50 66 21 100 1.4 140/63(86) NSR 0 (11) 10(A) , No pain 8:37:49 66 26 86 1.4 Measuring NSR 0 (11) 10(A) , No pain 8:38:22 69 39 94 1.4 133/61(91) NSR 0 (11) 10(A) , No pain 8:42:50 69 21 98 2.2 132/60(94) NSR 0 (11) 10(A) , No pain Medications Time Medication Route Dose Verified Delivered Reason Notes Effectiveness by by 7:50:48 Oxygen etCO2 2 l/min Tacos Barraza used for Nasal [facility] Sai Lemos resolution expert cannula 7:57:47 Zofran I.V. 4 mg Tacos Barraza Per [facility] Sai boyce RN physician pt states MD gonzalez at this time. 7:58:18 0.9% NaCl I.V. 100 ml/hr Tacos Barraza Per [facility] Sai Lemos RN physician 7:58:26 Lidocaine 2% added 20ml vial Tacos Balderrama for local to [facility] anesthetic field MD MOJICA 7:58:35 Heparin Flush added 2 bags Tacos Balderrama used for Bag to [facility] procedure (1000units/500ml field MD MOJICA NS) 7:58:42 Nexterone drip I.V. 360mg/200ml Tacos Buffie Per Cosme nued drip St Sai Lemos RN physician from medical MD floor via pump @ 17 ml/hr 8:01:02 Versed I.V. 0.5 mg Tacos Barraza for [facility] Sai Lemos RN sedation 8:01:08 Fentanyl I.V. 25 mcg Tacos Barraza for [facility] Sai Lemos RN sedation 8:08:22 Oxygen NRB 16 l/min Tacos Hooperie used for Pt St Sai Lemos RN procedure experiencing MD lowered oxygen saturation. Pt is not having apnea, respirations at 20 per minute. 8:35:13 Heparin Drip I.V. 1000 Tacos Barraza Per verif ied (61634vywmx/250 drip units/hr St Sai Lemos RN physician with gonzález AlmendarezW) MD godinez rn via pump at 10 ml/hr Procedure Log Time Note 7:17:13 Informed consent obtained and on chart 7:18:04 Lab Result : BUN 18 mg/dl 7:18:04 Lab Result : Hemoglobin 10 g/dl 7:18:04 Lab Result : Hematocrit 31.8 % 7:18:04 Lab Result : Creatinine 1.3 mg/dl 7:18:04 Lab Result : eGFR NONAFRICAN 60 ml/min 7:18:09 Arrival Date: 03/12/2021 12:00:00 AM 7:18:10 Admit Source: Other 7:18:12 Patient Height : 73 inches 7:18:16 Patient Weight : 218.46 lbs 7:22:59 Diagnostic Cath Status : Urgent 7:23:12 ACC Patient presents with Unstable Angina CCS Anginal Class 2--Slight limitation of ordinary activity. 7:23:15 Procedure Status Urgent Heart Cath (IP). 7:23:17 Time tracking: Regular hours (M-F 7:00 - 5:00) 7:23:22 Plan of Care:Hemodynamics will remain stable., Cardiac rhythm will remain stable., Comfort level will be maintained., Respiratory function will remain adequate., Patient/ family verbilizes understanding of procedure., Procedure tolerated without complication., Recovers from procedure without complications.. 7:23:35 H&P Date Dictated: 03/06/2021 Within 30 days and on chart.. 7:23:37 Pre-procedure instructions explained to patient. 7:23:37 Pre-op teaching completed and patient verbalized understanding. 7:23:41 Family unavailable. 7:23:43 Patient NPO since Midnight. 7:23:50 Alarms reviewed by R. N. 7:23:50 Sharps counted by scrub and verified by R.N. 7:23:53 Lab results completed and on chart. 7:23:57 Stress Test: no; N/A ? 7:36:48 Marlin Gonsalez RT(R) sent for patient. Start room use. 7:46:45 Patient received from Med II to CCL 1 Alert and oriented. Tansferred to table in Supine position. 7:46:46 Warm blankets applied, and pauly hugger turned on for patient comfort. 7:46:47 Correct patient and procedure confirmed by team. 7:46:47 ECG and BP/O2 sat monitors applied to patient. 7:47:05 IV patent on arrival in right antecubital with 0.9% NaCl at KVO. 7:47:14 Full Disclosure recording started 7:50:25 Is patient on blood thinner?No 7:50:27 Is the patient allergic to Iodine/contrast media? No. 7:50:35 Patient allergic to No known allergies 7:50:37 Patient diabetic? No. 7:50:40 Previous problem with sedation/anesthesia? No ? 7:50:41 Snore? Yes 7:50:42 Sleep apnea? No 7:50:45 Deviated septum? No 7:50:46 Opens mouth fully? Yes 7:50:48 Oxygen 2 l/min etCO2 Nasal cannula was administered by Madi Leoms RN; used for procedure; Verbal order read back and verified. 7:50:50 Sticks out tongue? Yes 7:50:52 Airway obstruction? Yes COPD 7:50:55 Dentures? No ? 7:51:02 Pre procedure: right dorsailis pedis pulse 1+ Palpable, but thready & weak; easily obliterated 7:51:13 Right groin area was prepped with chlora-prep and draped in sterile fashion 7:52:06 Use device set Femoral Dx 7:52:07 ACIST Syringe (81298) opened to sterile field. 7:52:07 Bag Decanter () opened to sterile field. 7:52:08 ACIST Hand Control (51880) opened to sterile field. 7:52:08 ACIST Manifold (98010) opened to sterile field. 7:52:09 Tegaderm 4 x 4 (1626W) opened to sterile field. 7:52:11 Medline Cath Pack ([id number]) opened to sterile field. 7:52:11 DIAGNOSTIC Multipack 5Fr catheter set (VM3531) opened to sterile field. 7:52:12 SHEATH 5FR [place] (YLQ529) opened to sterile field. 7:52:12 EMERALD Guide Wire (522-037) opened to sterile field. 7:52:27 Vital chart was started 7:52:40 Rhythm: sinus rhythm 7:52:44 Baseline sample Acquired. 7:57:47 Zofran 4 mg I.V. was administered by Madi Lemos RN; Per physician; for nausea, pt states moderate at this time. Verbal order read back and verified. 7:58:18 0.9% NaCl 100 ml/hr I.V. was administered by Madi Lemos RN; Per physician; Verbal order read back and verified. 7:58:26 Lidocaine 2% 20ml vial added to field was administered by Tacos Coronado MD; for local anesthetic; Verbal order read back and verified. 7:58:35 Heparin Flush Bag (1000units/500ml NS) 2 bags added to field was administered by Tacos Coronado MD; used for procedure; Verbal order read back and verified. 7:58:42 Nexterone drip 360mg/200ml I.V. drip was administered by Madi Lemos RN; Per physician; Continued from medical floor via pump @ 17 ml/hr Verbal order read back and verified. 8:00:11 --------ALL STOP TIME OUT------ 8:00:12 Final Timeout: patient, procedure, and site verified with staff and physician. All members of the team are in agreement. 8:00:14 Right groin site verified by team. 8:00:18 Fire Safety Assessment: A--An alcohol-based skin anteseptic being used preoperatively., C--Open oxygen or nitrous oxide is being used., D--An ESU, laser, or fiber-optic light is being used. 8:00:22 Physical assessment completed. ASA score P 2 - A patient with mild systemic disease as per Tacos Coronado MD. 8:00:26 2) 60-89 Mildly reduced kidney function, and other findings (as for stage 1) point to kidney disease. 8:00:27 Pt transported to label coder with bilat leg dressings in place from previous procedure. Pt appears blue in color of the face and chest. Will monitor closely. 8:00:29 Maximum allowable contrast dose (3.7 X eGFR X 0.75)167 ml. 8:00:33 Sedation plan: IV Moderate Sedation Medication:Versed, Fentanyl 8:01:02 Versed 0.5 mg I.V. was administered by aMdi Lemos RN; for sedation; Verbal order read back and verified. 8:01:08 Fentanyl 25 mcg I.V. was administered by Madi Lemos RN; for sedation; Verbal order read back and verified. 8:01:50 IV Extension Set opened to sterile field. 8:07:57 Procedure started. 8:08:02 Local anesthetic to right femoral artery with Lidocaine 2% by Tacos Coronado MD.INITIAL ACCESS ONLY 8:08:22 Oxygen 16 l/min NRB was administered by Madi Lemos RN; used for procedure; Pt experiencing lowered oxygen saturation. Pt is not having apnea, respirations at 20 per minute. Verbal order read back and verified. 8:10:00 A 5 Fr sheath was inserted into the Right Femoral artery 8:10:12 A MULTIPACK JL 4.0 5Fr catheter was advanced over the wire and used for Procedure. 8:10:37 LCA angiography performed. 8:10:40 Injector settings: Ml/sec: 3, Volume: 6, 8:12:44 Catheter removed. 8:12:49 A MULTIPACK 3DRC 5Fr catheter was advanced over the wire and used for Procedure. 8:13:22 RCA angiography performed. 8:13:26 Injector settings: Ml/sec: 3, Volume: 6, 8:13:36 Catheter removed. 8:13:47 Zero performed for pressure channel P1 8:14:11 A MULTIPACK Pigtail 5 Fr catheter was advanced over the wire and used for Procedure. 8:14:27 LV gram done using CEDILLO 8:14:45 LV hemodynamics recorded. 8:15:22 Injector settings: Ml/sec: 5, Volume: 15, 8:15:27 EF : 20 % 8:19:02 Catheter removed. 8:19:38 Proceeding to intervention. 8:19:49 Sheath upsized to a 8 Fr. 8:20:22 Use device set IABP 8:20:32 TUBING High Pressure Extension (IABP) opened to sterile field. 8:20:34 2-0 Silk 685H opened to sterile field. 8:20:49 IABP 40cm balloon catheter ([id number]) opened to sterile field. 8:21:52 Sheath 8fr. [place] 10cm opened to sterile field. 8:22:56 IABP-------- 8:23:03 40cc IABP inserted into the RFA . 8:23:13 Augmentation: 1:1 per physician. 8:23:16 Trigger: Pressure 8:32:09 2-0 Silk 685H opened to sterile field. 8:32:26 Tegaderm 4 x 4 (1626W) opened to sterile field. 8:32:32 Tegaderm 4 x 4 (1626W) opened to sterile field. 8:32:42 Procedure ended.(Physican Out) 8:32:45 Fluoroscopy time 01.80 minutes. 8:32:50 Flurop Dose total: 553 8:32:50 Fluoroscopy dose: 553 mGy 8:32:55 Dose Area Product 81228 mGy/cm. 8:33:39 Maximum allowable dose exceeded? No. 8:33:40 Sharps counted by scrub and verified by R.N. 8:34:18 Contrast amount:Isovue 370 46ml. 8:34:50 Post-op/insertion site Right Femoral artery dressed using a 4 x 4 and Tegaderm. 8:35:00 Post right femoral artery:stable, soft 8:35:02 Post Procedure Pulses reassessed and unchanged 8:35:06 Post procedure: right dorsailis pedis pulse 2+ Normal; easily identifiable; not easily obliterated. 8:35:11 Post-procedure physical assessment completed. ASA score P 2 - A patient with mild systemic disease as per Tacos Coronado MD. 8:35:13 Heparin Drip (80193ndbyq/250 D5W) 1000 units/hr I.V. drip was administered by Madi Lemos RN; Per physician; verified with gonzález godinez rn via pump at 10 ml/hr Verbal order read back and verified. 8:35:15 Post procedure rhythm: unchanged. 8:35:18 Estimated blood loss: 10 ml 8:35:19 Post procedure instruction explained to patient.Patient verbalizes understanding. 8:35:20 Patient needs reinforcement of post procedure teaching. 8:35:58 Procedure type changed to Cath procedure, Diagnostic procedure, LHC, C w/Coronaries, Intra-Aortic Balloon Pump, Sedation Charges, Moderate Sedation 25-39 minutes 8:37:11 Procedure and supply charges have been captured, reviewed, submitted and are correct. 8:37:14 Procedure Complication : No complications 8:37:20 [facility] Findings: MVD- PCI performed (see procedure note) 8:37:22 Operative report dictated upon procedure completion. 8:37:22 See physician's report for complete and final results. 8:37:25 Report given to CVICU. 8:37:30 Patient transfered to CVICU with Bed. 8:37:35 Procedure ended. 8:37:35 Full Disclosure recording stopped 8:37:40 End room use (Document Last) 8:38:15 End room use (Document Last) 8:38:33 End room use (Document Last) 8:47:05 Vital chart was stopped Device Usage Item Name Manufacture Quantity Catalog Number [facility] Minimal Lot# / Charge Number Stock Stock Serial# Code ACIST Syringe Acist 1 27332 347049 507799 620420 20 (70720) [employer] Bag Decanter Microtek 1 2001S 047899 93693 050766 5 (2001S) Medical Inc. ACIST Hand Acist 1 99268 122009 848785 380236 5 Control (77900) [employer] Inc ACIST Manifold Acist 1 86969 184619 648526 334293 5 (49600) Medical Systems Inc Tegaderm 4 x 4 3M 3 1626W 969764 396130 268654 5 (1626W) Medline Cath Medline 1 [id number] 501368 79105 895132 5 Pack ([id number]) DIAGNOSTIC Cardinal 1 WR9565 778493 97316 451910 30 Multipack 5Fr Health catheter set ([id number]) SHEATH 5FR Terumo 1 [id number] 152155 074644 971508 5 [place] (IFC921) EMERALD Guide Cardinal 1 502-455 389268 729869 157239 5 Wire (502-455) Health IV Extension Hospira 1 050507 17326 939175 5 Set MULTIPACK JL Cardinal 1 [id number] 5 4.0 5Fr Health catheter MULTIPACK 3DRC Cardinal 1 929897 5 5Fr catheter Health MULTIPACK Cardinal 1 344102 5 Pigtail 5 Fr Health catheter TUBING High Merit 1 [id number] 275036 753668 492375 5 Pressure Medical Extension (IABP) 2-0 Silk 685H Ethicon 2 685H 782804 74326 783812 5 IABP 40cm [facility] 1 [id number] 129564 571097 625231 1 Crowd Cast [facility] catheter (820142) ([id number]) Sheath 8fr. Terumo 1 [id number] 255071 882899 1 5 [place] 10cm Signature Audit [place] Stage Time Signature Unsigned Intra-Procedure 03/12/2021 Antoinette Interiano 8:38:15 AM RT(R) Intra-Procedure 03/12/2021 Madi Lemos RN 8:38:34 AM Intra-Procedure 03/12/2021 Tacos Boyer 8:47:04 AM Sai [facility] [address] [place] [address]
[2021-03-06 09:30] LABS: BASOPHILS 0.6 % (0-2); EOSINOPHILS 4.6 % (0-7); HEMATOCRIT 38.3 % (42.0-54.0); HEMOGLOBIN 11.7 g/dL (13.5-17.5); IMMATURE GRANULOCYTES 0.2 % (0-5); LYMPHOCYTE ABS# 0.91 10x3/uL (1.32-3.57); LYMPHOCYTES 19.1 % (15-50); MCH 25.9 pg (26.0-34.0); MCHC 30.5 g/dL (31.0-37.0); MCV 84.7 fL (80.0-100.0); MONOCYTES 15.1 % (2-11); NEUTROPHIL ABS# 2.88 10x3/uL (1.78-5.38); NEUTROPHILS 60.4 % (40-80); PLATELET COUNT 186 10x3/uL (130-400); RBC 4.52 10x6/uL (4.20-6.10); RDW 18.8 % (11.5-14.5); WBC 4.8 10x3/uL (4.8-10.8)
[2021-03-06 09:49] LABS: ANION GAP 9.7 mmol/L (8-16); CALCIUM 9.3 mg/dL (8.5-10.1); CARBON DIOXIDE 33.6 mmol/L (21.0-32.0); CREATININE - SERUM 1.6 mg/dL (0.6-1.3); POTASSIUM - SERUM 3.3 mmol/L (3.5-5.1)
[2021-03-06 10:18] VITALS: BP 112/72; BMI 28.8
--- NOTE | 2021-03-06 10:38 | NUR ---
[employer] HERE TO TURN PACEMAKER/DEFIBRILLATOR OFF FOR SURGERY
--- NOTE | 2021-03-06 14:37 | NUR ---
1355-1% ASCLERA X 4ML MIXED WITH 20ML INJECTABLE SALINE FOR SCLEROTHERAPY. DEFIBRILLATOR MAGNET PLACED ON PATIENT'S INTERNAL DEFIBRILLATOR PER ANESTHESIA. NOTED, FÉLIXRN
--- NOTE | 2021-03-06 14:54 | NUR ---
1439-RED AREA NOTED AROUND UMBILICUS; SIZE OF HAND. RED AREA NOTED TO RIGHT PUBIS, SIZE OF QUARTER. NOTED, FÉLIXRN
[2021-03-06 16:36] LABS: HEMATOCRIT 31.2 % (42.0-54.0); HEMOGLOBIN 9.6 g/dL (13.5-17.5)
[2021-03-06 18:05] LABS: BASOPHILS 1.2 % (0-2); EOSINOPHILS 5.3 % (0-7); IMMATURE GRANULOCYTES 0.5 % (0-5); LYMPHOCYTE ABS# 1.07 10x3/uL (1.32-3.57); LYMPHOCYTES 25.7 % (15-50); MCH 25.4 pg (26.0-34.0); MCHC 29.9 g/dL (31.0-37.0); MCV 84.8 fL (80.0-100.0); MEAN PLATELET VOLUME 9.7 fL (7.4-10.4); NEUTROPHILS 55.3 % (40-80); RDW 18.8 % (11.5-14.5); WBC 4.2 10x3/uL (4.8-10.8)
[2021-03-06 18:06] LABS: RBC 2.76 10x6/uL (4.20-6.10)
[2021-03-06 18:11] LABS: HEMATOCRIT 23.4 % (42.0-54.0); PLATELET COUNT 148 10x3/uL (130-400)
[2021-03-06 18:35] VITALS: BP 85/48
--- NOTE | 2021-03-06 19:30 | NUR ---
a&o x 4, received to room, accompanied by staff, , and son. ambulated with standby assist. denies current sob/pain. sandwich tray per request, denies further needs at this time, ctm.
[2021-03-06 19:50] VITALS: BP 87/58
[2021-03-06 20:00] VITALS: BP 87/42
[2021-03-06 20:20] VITALS: BP 81/45
[2021-03-06 20:41] VITALS: BMI 28.8
--- NOTE | 2021-03-06 22:30 | NUR ---
PT UNABLE TO VOID, LAST VOID REPORTED WAS AT 10AM. BLADDER SCAN READS +534MLs. 16FR CATHETER INSERTEDUSING STERILE TECHNIQUE. 600MLs EMPTIED INTO COLLECTION BAG, IMMEDIATELY. PT REPORTS HE IF STARTING TO FEEL SLIGHT RELIEF. TUBING SECURED TO LEG WITH STAT LOCK DRESSING TO RLE REINFORCED WITH 4X4 AND JUAN JOSE WRAP. NO FURTHER NEEDS VOICED, CTM.
[2021-03-06 23:20] VITALS: BP 90/59
[2021-03-07] VITALS: BP 91/57
[2021-03-07 04:00] VITALS: BP 101/51
[2021-03-07 06:04] LABS: BASOPHILS 0.2 % (0-2); EOSINOPHILS 0.1 % (0-7); HEMATOCRIT 27.1 % (42.0-54.0); HEMOGLOBIN 8.3 g/dL (13.5-17.5); IMMATURE GRANULOCYTES 0.2 % (0-5); LYMPHOCYTE ABS# 0.84 10x3/uL (1.32-3.57); LYMPHOCYTES 8.9 % (15-50); MCH 25.6 pg (26.0-34.0); MCHC 30.6 g/dL (31.0-37.0); MCV 83.6 fL (80.0-100.0); MEAN PLATELET VOLUME 10.7 fL (7.4-10.4); MONOCYTES 6.9 % (2-11); NEUTROPHILS 83.7 % (40-80); RBC 3.24 10x6/uL (4.20-6.10); RDW 17.9 % (11.5-14.5)
[2021-03-07 06:22] LABS: PLATELET COUNT 184 10x3/uL (130-400); WBC 9.4 10x3/uL (4.8-10.8)
[2021-03-07 06:40] LABS: ALBUMIN 2.3 g/dL (3.4-5.0); ANION GAP 8.3 mmol/L (8-16); BILIRUBIN - TOTAL 2.36 mg/dL (0.2-1.3); CREATININE - SERUM 1.5 mg/dL (0.6-1.3); MAGNESIUM - SERUM 1.4 mg/dL (1.8-2.4); PHOSPHOROUS 2.8 mg/dL (2.5-4.9); POTASSIUM - SERUM 3.3 mmol/L (3.5-5.1); PROTEIN - SERUM 5.1 g/dL (6.4-8.2)
[2021-03-07 06:49] LABS: TROPONIN-I 0.144 ng/mL (0.000-0.060)
--- NOTE | 2021-03-07 07:25 | NUR ---
RECEIVED CALL OVER RADIO PT BP 63/45 DID MANUAL AND PATIENT BP IS 88/52, WILL CONTINUE TO MONITOR
[2021-03-07 09:08] VITALS: BP 88/52
--- NOTE | 2021-03-07 09:08 | NUR ---
patient a little confused but easily reoriented, has gotten up several times to urinate although he has a catheter in, administered scheduled medications as well as prn pain medication. no needs voiced by family or patient. continue with plan of care
--- NOTE | 2021-03-07 10:52 | NUR ---
ASSISTED PATIENT ON BEDPAN, PATIENT UNABLE TO USE RESTROOM, NO OTHER NEEDS AT THIS TIME, SPOUSE AT SIDE OF BED ,CL IN REACH CONTINUE WITH PLAN OF CARE
[2021-03-07 11:58] LABS: CKMB 1.6 U/L (0.0-3.6); CREATINE KINASE 124 UL (21-232)
[2021-03-07 12:00] LABS: TROPONIN-I 0.131 ng/mL (0.000-0.060)
--- NOTE | 2021-03-07 13:02 | NUR ---
STARTED PATIENT 1ST UNIT OF BLOOD, PATIENT EATING LUNCH IN BED, SPOUSE AT BEDSIDE, NO NEEDS VOICED AT THIS TIME. CONTINUE WITH PLAN OF CARE
--- NOTE | 2021-03-07 13:15 | NUR ---
PATIENT TEMP IS 100.2 ORDERD AND STARTED TYLENOL PO FOR FEVER, CONTINUE WITH PLAN OF CARE
--- NOTE | 2021-03-07 14:47 | NUR ---
IN BED, BLOOD INFUSING. PHYSICIAN IN ROOM TALKING. FREE FROM SIGNS OF DISTRESS. BED LOW POSITION, CALL LIGHT IN REACH. FAMILY AT BEDSIDE. WILL CONTINUE TO MONITOR.
[2021-03-07 14:48] VITALS: BP 87/46
[2021-03-07 17:47] VITALS: BP 86/61
[2021-03-07 19:38] LABS: HEMATOCRIT 29.3 % (42.0-54.0); HEMOGLOBIN 9.3 g/dL (13.5-17.5)
[2021-03-07 20:00] VITALS: BP 109/58
[2021-03-07 20:11] LABS: CKMB 1.9 U/L (0.0-3.6); CREATINE KINASE 144 UL (21-232)
[2021-03-07 20:12] LABS: TROPONIN-I 0.134 ng/mL (0.000-0.060)
--- NOTE | 2021-03-07 23:51 | NUR ---
I have reviewed this patient and I concur with the Shift Assessment completed by the Licensed Practical Nurse today this shift.
[2021-03-08 04:00] VITALS: BP 104/57
[2021-03-08 04:00] LABS: BASOPHILS 0.6 % (0-2); EOSINOPHILS 3.7 % (0-7); HEMATOCRIT 27.9 % (42.0-54.0); HEMOGLOBIN 8.8 g/dL (13.5-17.5); IMMATURE GRANULOCYTES 0.3 % (0-5); LYMPHOCYTE ABS# 1.29 10x3/uL (1.32-3.57); LYMPHOCYTES 17.8 % (15-50); MCH 26.4 pg (26.0-34.0); MCHC 31.5 g/dL (31.0-37.0); MCV 83.8 fL (80.0-100.0); MEAN PLATELET VOLUME 10.2 fL (7.4-10.4); MONOCYTES 15.7 % (2-11); NEUTROPHIL ABS# 4.49 10x3/uL (1.78-5.38); NEUTROPHILS 61.9 % (40-80); PLATELET COUNT 184 10x3/uL (130-400); RBC 3.33 10x6/uL (4.20-6.10); RDW 17.8 % (11.5-14.5); WBC 7.3 10x3/uL (4.8-10.8)
--- NOTE | 2021-03-08 04:00 | NUR ---
SLAG EXPANDER REPORTS PT HAD RUN OF 11 PVCs @ 0345. PT SUPINE IN BED, ASLEEP. SPONTANEOUS EYE OPENING UPON VERBAL STIMULATION. DENIES ANY DISTRESS. CPOP. BREAKDOWN MAN, NOW, REPORTING PT APPEARS TO CURRENTLY BE RUNNING 80 PACED.
[2021-03-08 04:38] LABS: ALBUMIN 2.5 g/dL (3.4-5.0); ALKALINE PHOSPHATASE 53 U/L (30-120); ALT (SGPT) 11 U/L (10-68); BILIRUBIN - TOTAL 1.26 mg/dL (0.2-1.3); CALC OSMOLALITY 281 mosm/kg (275-300); CARBON DIOXIDE 31.4 mmol/L (21.0-32.0); CHLORIDE - SERUM 102 mmol/L (98-107); CKMB 1.8 U/L (0.0-3.6); CREATINE KINASE 112 UL (21-232); CREATININE - SERUM 1.6 mg/dL (0.6-1.3); GLUCOSE 112 mg/dL (74-106); POTASSIUM - SERUM 3.6 mmol/L (3.5-5.1); PROTEIN - SERUM 5.7 g/dL (6.4-8.2); SODIUM 138 mmol/L (136-145); UREA NITROGEN 27 mg/dL (7-18); eGFR NON AFRICAN AMERICAN 47 mL/min (90-120)
[2021-03-08 04:40] LABS: TROPONIN-I 0.133 ng/mL (0.000-0.060)
--- NOTE | 2021-03-08 07:15 | NUR ---
PT IS RESTING IN BED WITH EYES OPEN. RESPIRATIONS ARE EVEN AND UNALBORED. PT IS AAO X 4 AND ANSWERS ALL QUESTIONS APPROPRIATELY. DRESSINGS TO BLE NOTED AND WITH SCANT AMOUNT OF BLOODY DRAINAGE NOTED. PT REPORTS NUMBNESS TO BLE AND STATES "BECAUSE I AM LAYING IN THIS BED" PT IS ABLE TO WIGGLE TOES. PT AT BEDSIDE. PIV TO RIGHT FA INFUSING PER ORDER WITHOUT COMPROMISE. INCENTIVE SPIROMETER AT BEDSIDE AND ENCOURAGED. PT DENIES PRESENCE OF PAIN/N/V AT THIS TIME. PT DENIES PRESENCE OF DYSPNEA/SOB AT THIS TIME. WEISS CATHETER NOTED AND DRAINING WITHOUT COMPROMISE. CLEAR YELLOW URINE NOTED TO COLLECTION CHAMBER.STAT LOCK TO RIGHT UPPER THIGH. BED IS IN THE LOWEST POSITION. CALL LIGHT AND BEDSIDE TABLE ARE WITHIN REACH. SIDE RAILS X 2. PT AND PT DENY FURTHER NEEDS. WILL CONT TO MONITOR.
[2021-03-08 08:11] VITALS: BP 105/67
[2021-03-08 12:12] LABS: HEMATOCRIT 26.6 % (42.0-54.0); HEMOGLOBIN 8.3 g/dL (13.5-17.5)
--- NOTE | 2021-03-08 12:23 | NUR ---
(1) UNIT PRBC TRANSFUSION INITIATED. JOSE NGUYEN RN AT BEDSIDE TO VERIFY BLOOD. PRE TRANSFUSION VITALS STABLE. SEE TRANSFUSION CARD. NO APPARENT S/S OF DISTRESS NOTED. PT AT BEDSIDE. WILL STAY IN ROOM TO CLOSELY MONITOR FOR FIRST 15 MINUTES OF PRBC INFUSION. PRBC INFUSING WITHOUT DIFFICULTY/COMPROMISE TO RIGHT FA. BED IS IN THE LOWEST POSITION. CALL LIGHT AND BEDSIDE TABLE ARE WITHIN REACH.
--- NOTE | 2021-03-08 13:36 | NUR ---
PT RESTING IN BED WITH EYES OPEN. LUNCH TRAY AT BEDSIDE. PRBC INFUSING WITHOUT DIFFICULTY/COMPROMISE. NO APPARENT S/S OF DISTRESS NOTED. AT BEDSIDE. BED IS IN THE LOWEST POSITION. CALL LIGHT AND BEDSIDE TABLE ARE WITHIN REACH. SIDE RAILS X 2. WILL CONT TO MONITOR.
--- NOTE | 2021-03-08 15:19 | NUR ---
(1) UNIT PRBC INFUSION COMPLETE. VSS. SEE TRANSFUSION CARD. NO APPARENT S/S OF DISTRESS NOTED. PT WITHOU FREQUENT COUGH. LUNG SOUNDS DIMINISHED TO RUL/RML/RLL. IV LASIX GIVEN PER ORDER. SEE EMAR. AT BEDSIDE. BED IS IN THE LOWEST POSITION. CALL LIGHT AND BEDSIDE TABLE ARE WITHIN REACH. SIDE RAILS X 2. PT AND PT DENY FURTEHR NEEDS. WILL CONT TO MONITOR.
[2021-03-08 15:21] VITALS: BP 107/71
--- NOTE | 2021-03-08 16:00 | NUR ---
DR AN AND DELBERT JAMIL EYELET MAKER AT BEDSIDE. INFORMED DR AN AND DELBERT OF RECENT COMPLETION OF PRBC TRANSFUSION. VERBAL ORDERS REC TO INFUSE BLOOD PRODUCTS AFTER 2000 H/H REDRAW IF HCT IS <30. [address] NURSING MESSAGE.
[2021-03-08 20:00] VITALS: BP 115/76
--- NOTE | 2021-03-08 20:00 | NUR ---
HEMATOCRIT 31.4. PER ORDER WILL NOT TRANSFUSE PRBC, FFP AND PLATELETS TONIGHT. PT LYING IN BED WITHOUT DISTRESS, AOX4. AT BEDSIDE. DENIES NEEDS AT THIS TIME. CL IN REACH
[2021-03-08 20:27] LABS: HEMATOCRIT 31.4 % (42.0-54.0)
[2021-03-08 20:28] LABS: HEMOGLOBIN 11.1 g/dL (13.5-17.5)
[2021-03-09 00:48] VITALS: BP 121/72
[2021-03-09 04:00] VITALS: BP 114/76
--- NOTE | 2021-03-09 04:00 | NUR ---
PT SITTING UP IN BED WITHOUT DISTRESS, AOX4. AT BEDSIDE. DENIES NEEDS AT THIS TIME. CL IN REACH
[2021-03-09 06:49] LABS: BASOPHILS 0.4 % (0-2); EOSINOPHILS 4.5 % (0-7); HEMATOCRIT 29.4 % (42.0-54.0); HEMOGLOBIN 9.2 g/dL (13.5-17.5); IMMATURE GRANULOCYTES 0.4 % (0-5); LYMPHOCYTE ABS# 1.01 10x3/uL (1.32-3.57); LYMPHOCYTES 15.1 % (15-50); MCH 26.7 pg (26.0-34.0); MCHC 31.3 g/dL (31.0-37.0); MCV 85.5 fL (80.0-100.0); MEAN PLATELET VOLUME 9.8 fL (7.4-10.4); MONOCYTES 12.8 % (2-11); NEUTROPHIL ABS# 4.48 10x3/uL (1.78-5.38); NEUTROPHILS 66.8 % (40-80); RBC 3.44 10x6/uL (4.20-6.10); RDW 17.7 % (11.5-14.5); WBC 6.7 10x3/uL (4.8-10.8)
[2021-03-09 07:00] LABS: ALBUMIN 2.5 g/dL (3.4-5.0); ANION GAP 8.4 mmol/L (8-16); BILIRUBIN - TOTAL 1.13 mg/dL (0.2-1.3); CALCIUM 7.8 mg/dL (8.5-10.1); CREATININE - SERUM 1.2 mg/dL (0.6-1.3); MAGNESIUM - SERUM 1.7 mg/dL (1.8-2.4); POTASSIUM - SERUM 3.4 mmol/L (3.5-5.1); PROTEIN - SERUM 5.9 g/dL (6.4-8.2)
[2021-03-09 07:08] LABS: PLATELET COUNT 143 10x3/uL (130-400)
--- NOTE | 2021-03-09 07:25 | NUR ---
ALERT AND ORIENTED. ASSESSMENT COMPLETE. DENIES NEEDS. BED LOW. CALL [place] AND PERSONAL ITEMS IN REACH. WILL CONTINUE TO MONITOR.
--- NOTE | 2021-03-09 07:33 | NUR ---
ILA JAMIL NOTIFIED OF PATIENT'S HGB AND HCT. WAITING ORDERS.
[2021-03-09 08:34] VITALS: BP 110/67
--- NOTE | 2021-03-09 08:46 | NUR ---
NOT TRANSFUSING TODAY PER ILA CHOI. STATES WILL COME SEE [facility].
--- NOTE | 2021-03-09 09:06 | NUR ---
GOT CALL FROM MALIHA AT [employer] DETAILER TO CHECK ON PATIENT. PATIENT STATES FELT HIS DEFIBRILLATOR "GO OFF." CARDIOLOGY PAGED.
--- NOTE | 2021-03-09 09:27 | NUR ---
PATIENT TO BE MOVED TO [facility] 2 AND BE PLACED ON AMIODARONE DRIP. WAITING BED.
--- NOTE | 2021-03-09 09:27 | NUR ---
TELEMETRY STRIPS PLACED ON CHART.
--- NOTE | 2021-03-09 10:04 | NUR ---
REPORT CALLED TO NURSE ON MED 2. DENIES FURTHER QUESTIONS. PATIENT MOVED TO MED 2 ROOM 2121.
--- NOTE | 2021-03-09 10:11 | NUR ---
PATIENT MOVED TO [facility] 2 WITH AND ALL BELONGIGNS.
[2021-03-09 12:01] VITALS: BP 106/60
--- NOTE | 2021-03-09 12:12 | NUR ---
PATIENT BROUGHT OVER FROM MED SURG AAOX4, AT [facility], RESP EVEN AND NON LABORED, NO S/S OF DISTRESS, SCD'S IN PLACE, IV MEDICATIONS STARTED AND VITALS OBTAINED BP-106/60, R-16, O2-91, P-85, PATIENT EDUCATION GIVEN ON CARDIAC DRIP, NO FURTHER NEEDS AT THIS TIME, TABBY, CHERYLP
[2021-03-09 12:50] LABS: CKMB 0.9 U/L (0.0-3.6); CREATINE KINASE 49 UL (21-232)
[2021-03-09 12:57] LABS: TROPONIN-I 0.162 ng/mL (0.000-0.060)
[2021-03-09 15:58] VITALS: BP 144/81
--- NOTE | 2021-03-09 17:53 | NUR ---
PATIENT NEEDS BLOOD AND ANOTHER IV ACCESS, X1 UNSUCESSFUL STICK TO RIGHT FOREARM, X1 SUCCESSFUL STICK TO RIGHT AC 20G, PATIENT TOLERATED WITH MODERATE DISCOMFORT, IS GOING TO HELP PATIENT WITH A BED BATH BEFORE BLOOD IS HUNG, NO FURTHER NEEDS AT THIS TIME, ANN MCNAIR
[2021-03-09 18:23] LABS: CREATINE KINASE 51 UL (21-232)
[2021-03-09 18:32] LABS: TROPONIN-I 0.175 ng/mL (0.000-0.060)
[2021-03-09 20:09] VITALS: BP 103/61
--- NOTE | 2021-03-09 20:30 | NUR ---
RUN OF 9 VT, PER STAFF SCIENTIST. PT ASYMPTOMATIC, DENIES CP.
--- NOTE | 2021-03-10 00:28 | NUR ---
RUN OF 16 VT, PER PRICE ANALYST. PT ASYMPTOMATIC, DENIES CP.
[2021-03-10 01:28] VITALS: BP 125/79
--- NOTE | 2021-03-10 02:00 | NUR ---
RUN OF 15 V-TACH, PER CASE SEALER. PT ASYMPTOMATIC, DENIES CP AT THIS TIME.
[2021-03-10 02:04] LABS: CKMB 0.5 U/L (0.0-3.6); CREATINE KINASE 43 UL (21-232)
[2021-03-10 02:05] LABS: TROPONIN-I 0.181 ng/mL (0.000-0.060)
--- NOTE | 2021-03-10 03:10 | NUR ---
RUN OF 10 V-TACH, PER FELLER SEAM OPERATOR. PT ASYMPTOMATIC, DENIES CP AT THIS TIME.
[2021-03-10 03:11] LABS: BASOPHILS 0.3 % (0-2); EOSINOPHILS 5.7 % (0-7); HEMATOCRIT 31.5 % (42.0-54.0); IMMATURE GRANULOCYTES 0.3 % (0-5); LYMPHOCYTE ABS# 0.92 10x3/uL (1.32-3.57); LYMPHOCYTES 14.6 % (15-50); MCH 27.4 pg (26.0-34.0); MCHC 31.7 g/dL (31.0-37.0); MCV 86.3 fL (80.0-100.0); MEAN PLATELET VOLUME 10.2 fL (7.4-10.4); MONOCYTES 15.4 % (2-11); NEUTROPHIL ABS# 4.01 10x3/uL (1.78-5.38); NEUTROPHILS 63.7 % (40-80); PLATELET COUNT 146 10x3/uL (130-400); RBC 3.65 10x6/uL (4.20-6.10); RDW 17.4 % (11.5-14.5); WBC 6.3 10x3/uL (4.8-10.8)
[2021-03-10 03:21] LABS: ALBUMIN 2.6 g/dL (3.4-5.0); ANION GAP 12.5 mmol/L (8-16); BILIRUBIN - TOTAL 1.14 mg/dL (0.2-1.3); CALCIUM 8.1 mg/dL (8.5-10.1); CARBON DIOXIDE 23.4 mmol/L (21.0-32.0); CREATININE - SERUM 1.1 mg/dL (0.6-1.3); MAGNESIUM - SERUM 1.9 mg/dL (1.8-2.4); POTASSIUM - SERUM 3.9 mmol/L (3.5-5.1); PROTEIN - SERUM 6.1 g/dL (6.4-8.2)
--- NOTE | 2021-03-10 03:57 | NUR ---
PT CONTINUES TO HAVE MULTIPLE RUNS OF VT DURING THE NIGHT IN ADDITION TO FREQUENT PVCS. PT ASYMPTOMATIC EACH TIME. SEE PRIOR NURSES NOTES FOR SPECIFICS. UNIT OF PRBC ORDERED YESTERDAY FINISHED INFUSING AT 2205. PT TOLERATED WELL. IV LASIX GIVEN PER ORDER AFTER. CHART CHECK PREFORMED. PER CARDIOLOGY RECOMMENDATIONS TO KEEP H&H AND ELECTROLYES AT GOAL Q6 LABS ORDERED. NOTIFED LAB THAT LABS TO BE DRAWN WITH NEXT TROP. NOTIFIED LAB SEVERAL TIMES ON THE NEED TO GET LABS TO GET CURRENT VALUES TO BE ABLE TO TREAT APPROPRIATLY. CORDARONE GTT CONTINUES TO INFUSE PER ORDER. SCROTAL EDEMA OBSERVED, DENIES PAIN. THIGHS WEEPING. NO FURTHER CHANGES, H/H AT CURRENT GAOL, MAG INFUSING. CL IN REACH.
[2021-03-10 05:29] VITALS: BP 118/81
[2021-03-10 07:34] VITALS: BP 130/87
--- NOTE | 2021-03-10 08:46 | NUR ---
NOTIFIED BY MANUAL LATHE MACHINIST THAT PT IS SHOWING VTACH, CHECKED ON PT AND PT IS UP TO BEDSIDE COMMODE AT THIS TIME ASYMPTOMATIC. FAMILY AT BEDSIDE, CALL LIGHT IN REACH.
--- NOTE | 2021-03-10 09:27 | NUR ---
AM MEDS GIVEN AT THIS TIME. PT A/O X4, RESP EVEN AND NONLABORED ON RA. RT AC IV SL. RT FA INFUSING NS AT 75CC/HR AND AMIODORONE AT 17. SR-70 WITH PAC ON THE MONITOR. WEISS DRAINING DARK URINE TO GRAVITY. DRESSING TO BILAT LEGS INTACT. PROVIDED PT WITH IS AND INSTRUCTED HIM ON HOW TO USE USE, PT WAS ABLE TO REACH 2000 AT THIS TIME. DENIES ANY NEEDS AT THIS TIME. FAMILY AT BEDSIDE.
--- NOTE | 2021-03-10 09:55 | NUR ---
NOTIFIED DR. HSIEH REGARDING PT HAVING FREQUENT EPISODES OF VTACH. DR. RUVALCABA ALREADY LOOKED AT PT'S MONITOR STRIPS, NEW MEDICATION ADDED.
[2021-03-10 11:47] VITALS: BP 132/72
[2021-03-10 12:12] LABS: BASOPHILS 0.5 % (0-2); EOSINOPHILS 5.4 % (0-7); HEMATOCRIT 32.9 % (42.0-54.0); HEMOGLOBIN 10.4 g/dL (13.5-17.5); IMMATURE GRANULOCYTES 0.3 % (0-5); LYMPHOCYTE ABS# 0.77 10x3/uL (1.32-3.57); LYMPHOCYTES 11.9 % (15-50); MCH 27.3 pg (26.0-34.0); MCHC 31.6 g/dL (31.0-37.0); MCV 86.4 fL (80.0-100.0); NEUTROPHIL ABS# 4.13 10x3/uL (1.78-5.38); NEUTROPHILS 63.9 % (40-80); PLATELET COUNT 142 10x3/uL (130-400); RBC 3.81 10x6/uL (4.20-6.10); RDW 17.7 % (11.5-14.5); WBC 6.5 10x3/uL (4.8-10.8)
--- NOTE | 2021-03-10 12:21 | NUR ---
PT ASKING TO HAVE WEISS CATHETER TAKEN OUT, INFORMED DR. LEO, PER DR. LEO D/C WEISS CATHETER AND IF PT DOES NOT URINATE IN 6HR PLACE WEISS BACK IN. WEISS CATHETER REMOVED WITH TIP INTACT. HELPED PT TO BATHROOM BECAUSE HE FELT LIKE HE NEEDED TO URINATE.
[2021-03-10 12:25] LABS: ALBUMIN 2.7 g/dL (3.4-5.0); ANION GAP 7.6 mmol/L (8-16); BILIRUBIN - TOTAL 1.15 mg/dL (0.2-1.3); CALCIUM 8.1 mg/dL (8.5-10.1); CARBON DIOXIDE 28.3 mmol/L (21.0-32.0); CREATININE - SERUM 1.1 mg/dL (0.6-1.3); MAGNESIUM - SERUM 2.3 mg/dL (1.8-2.4); POTASSIUM - SERUM 3.9 mmol/L (3.5-5.1); PROTEIN - SERUM 6.3 g/dL (6.4-8.2)
[2021-03-10 15:59] VITALS: BP 114/82
[2021-03-10 18:00] LABS: BASOPHILS 0.4 % (0-2); EOSINOPHILS 5.2 % (0-7); HEMATOCRIT 32.7 % (42.0-54.0); HEMOGLOBIN 10.2 g/dL (13.5-17.5); IMMATURE GRANULOCYTES 0.4 % (0-5); LYMPHOCYTE ABS# 0.97 10x3/uL (1.32-3.57); LYMPHOCYTES 13.3 % (15-50); MCH 27.1 pg (26.0-34.0); MCHC 31.2 g/dL (31.0-37.0); MEAN PLATELET VOLUME 9.7 fL (7.4-10.4); NEUTROPHIL ABS# 4.63 10x3/uL (1.78-5.38); NEUTROPHILS 63.7 % (40-80); PLATELET COUNT 145 10x3/uL (130-400); RBC 3.76 10x6/uL (4.20-6.10); RDW 17.7 % (11.5-14.5); WBC 7.3 10x3/uL (4.8-10.8)
[2021-03-10 18:13] LABS: ALBUMIN 2.6 g/dL (3.4-5.0); ANION GAP 11.4 mmol/L (8-16); BILIRUBIN - TOTAL 1.08 mg/dL (0.2-1.3); CALCIUM 8.1 mg/dL (8.5-10.1); CREATININE - SERUM 1.2 mg/dL (0.6-1.3); MAGNESIUM - SERUM 2.2 mg/dL (1.8-2.4); POTASSIUM - SERUM 4.4 mmol/L (3.5-5.1); PROTEIN - SERUM 6.3 g/dL (6.4-8.2)
--- NOTE | 2021-03-10 19:30 | NUR ---
RECEIVED REPORT, WILL ASSUME CARE OF PT, MAG. 2.2. WILL GIVE 400MG, BILATERAL LEGS-WEEPING NOTICED, PROVIDED CLEAN PADS AND SHEET, DENIES ANY NEEDS AT THIS TIME, BED IS LOW, SRX2, CALL LIGHT IN REACH, WILL CONTINUE PLAN OF CARE, AT BEDSIDE,
--- NOTE | 2021-03-10 19:41 | NUR ---
PT HAD A 26 BEAT RUN OF VT PER TELEMTRY. REMAINS ASYMPTOMATIC, PT HAD JUST GOTTEN UP TO RESTROOM.
[2021-03-10 19:58] VITALS: BP 131/73
[2021-03-11 00:55] VITALS: BP 122/84
--- NOTE | 2021-03-11 05:43 | NUR ---
I have reviewed this patient and I concur with the Shift Assessment completed by the Licensed Practical Nurse today this shift.
[2021-03-11 06:14] VITALS: BP 126/89
[2021-03-11 06:23] LABS: BASOPHILS 0.5 % (0-2); EOSINOPHILS 3.6 % (0-7); HEMATOCRIT 34.4 % (42.0-54.0); HEMOGLOBIN 10.7 g/dL (13.5-17.5); IMMATURE GRANULOCYTES 0.3 % (0-5); LYMPHOCYTE ABS# 1.46 10x3/uL (1.32-3.57); LYMPHOCYTES 18.9 % (15-50); MCHC 31.1 g/dL (31.0-37.0); MCV 86.6 fL (80.0-100.0); MONOCYTES 13.3 % (2-11); NEUTROPHIL ABS# 4.91 10x3/uL (1.78-5.38); NEUTROPHILS 63.4 % (40-80); PLATELET COUNT 165 10x3/uL (130-400); RBC 3.97 10x6/uL (4.20-6.10); RDW 17.6 % (11.5-14.5); WBC 7.7 10x3/uL (4.8-10.8)
--- NOTE | 2021-03-11 07:20 | NUR ---
RECIEVE REPORT. ALERT AND ORIENTED X4. SITTING UP IN BED. SPOUSE AT BEDSIDE. ELECTROLYTES WITH IN RANGE. AMIODARONE DRIP INFUSING ORDERED. CONTROLLED AFIB 88 ON TELEMETRY. DENIES ANY NEEDS. CONTINUE PLAN OF CARE AND SAFETY PRECAUTIONS.
[2021-03-11 07:52] LABS: CALCIUM 8.3 mg/dL (8.5-10.1); CARBON DIOXIDE 25.3 mmol/L (21.0-32.0); CREATININE - SERUM 1.2 mg/dL (0.6-1.3); MAGNESIUM - SERUM 2.2 mg/dL (1.8-2.4)
[2021-03-11 07:58] LABS: ANION GAP 11.7 mmol/L (8-16)
[2021-03-11 08:02] VITALS: BP 114/86
[2021-03-11 12:39] VITALS: BP 118/80
[2021-03-11 12:49] LABS: CHOL - HDL RATIO 3.9 ratio (2.3-4.9); LDL-HDL RATIO 2.3 ratio (1.5-3.5)
--- NOTE | 2021-03-11 17:17 | NUR ---
ALERT AND ORIENTED X4. SPOUSE AT BEDSIDE. CONSENTS FOR PROCEDURE SIGNED ON CHART. DENIES ANY NEEDS. CONTROLLED AFIB 82 ON TELEMETRY. CONTINUE PLAN OF CARE AND SAFETY PRECAUTIONS.
--- NOTE | 2021-03-11 19:43 | NUR ---
RECEIVED REPORT, WILL ASSUME CARE OF PT, DENIES ANY NEEDS AT THIS TIME, BED IS LOW, SRX2, CALL LIGHT IN REACH, AT BEDSIDE
[2021-03-11 22:06] VITALS: BP 125/83
--- NOTE | 2021-03-11 22:10 | NUR ---
RECHECK TEMP-97.5, RESPIRATIONS-18
--- NOTE | 2021-03-11 22:34 | NUR ---
I have reviewed this patient and I concur with the Shift Assessment completed by the Licensed Practical Nurse today this shift.
[2021-03-11 22:36] VITALS: BP 125/83
[2021-03-12] VITALS (21 sets, daily range): BP systolic 81–135; BP diastolic 45–89
[2021-03-12 05:39] LABS: BASOPHILS 0.5 % (0-2); EOSINOPHILS 2.3 % (0-7); HEMATOCRIT 31.8 % (42.0-54.0); IMMATURE GRANULOCYTES 0.5 % (0-5); MCHC 31.4 g/dL (31.0-37.0); MCV 85.9 fL (80.0-100.0); MEAN PLATELET VOLUME 11.1 fL (7.4-10.4); MONOCYTES 14.1 % (2-11); NEUTROPHIL ABS# 4.69 10x3/uL (1.78-5.38); NEUTROPHILS 63.6 % (40-80); RDW 17.5 % (11.5-14.5); WBC 7.4 10x3/uL (4.8-10.8)
[2021-03-12 05:42] LABS: PLATELET COUNT 199 10x3/uL (130-400)
[2021-03-12 05:50] LABS: ANION GAP 13.6 mmol/L (8-16); CALCIUM 8.3 mg/dL (8.5-10.1); CREATININE - SERUM 1.3 mg/dL (0.6-1.3); MAGNESIUM - SERUM 2.1 mg/dL (1.8-2.4); POTASSIUM - SERUM 4.6 mmol/L (3.5-5.1)
--- NOTE | 2021-03-12 07:20 | NUR ---
RECIEVE REPORT. ALERT AND ORIENTED X4. SITTING UP IN BED. PRE-OP FOR BRICK OR BLOCK MAKER COMPLETE. SPOUSE AT BEDSIDE. DENIES ANY OTHER NEEDS. CONTINUE PLAN OF CARE AND SAFETY PRECAUTIONS.
--- NOTE | 2021-03-12 14:04 | NUR ---
DC FROM MED 1 TO CVICU WILL NEED NEW ORDERS TO SEE PATIENT FOR PT
[2021-03-12 15:21] LABS: INR 1.51 (0.85-1.17); PROTIME 16.9 SECONDS (11.6-15.0)
[2021-03-12 21:59] LABS: INR 1.53 (0.85-1.17)
[2021-03-13] VITALS (24 sets, daily range): BP systolic 76–98; BP diastolic 41–60; Ht 185.4 cm; Wt 107.7 kg
--- NOTE | 2021-03-13 01:39 | NUR ---
PAGED DR BERMEO AT 0134, CALLED BACK AT 0138, INFORMED DR BERMEO ABOUT AUGMENTED PRESSURES DROPPING, CURRENT VITAL SIGNS, CURRENT DRIPS, PT'S CHRONIC COUGH, STRIKETHROUGH ON IABP DRESSING, INFORMED DR THAT AUGMENTED PRESSURES WERE BETTER ON 1:2 AND THAT IABP WAVE FORM SHOWES LATE INFLATE AND LATE DEFLATE. DR BERMEO ORDERED TO KEEP IABP FREQUENCY AT 1:2 AND TO CHECK AM LABS.
[2021-03-13 02:28] LABS: BASOPHILS 0.7 % (0-2); EOSINOPHILS 3.4 % (0-7); HEMATOCRIT 31.6 % (42.0-54.0); HEMOGLOBIN 9.7 g/dL (13.5-17.5); IMMATURE GRANULOCYTES 0.5 % (0-5); LYMPHOCYTE ABS# 1.34 10x3/uL (1.32-3.57); LYMPHOCYTES 15.7 % (15-50); MCH 26.9 pg (26.0-34.0); MCHC 30.7 g/dL (31.0-37.0); MCV 87.5 fL (80.0-100.0); MEAN PLATELET VOLUME 10.1 fL (7.4-10.4); MONOCYTES 13.4 % (2-11); NEUTROPHIL ABS# 5.64 10x3/uL (1.78-5.38); NEUTROPHILS 66.3 % (40-80); PLATELET COUNT 177 10x3/uL (130-400); RBC 3.61 10x6/uL (4.20-6.10); RDW 17.6 % (11.5-14.5); WBC 8.5 10x3/uL (4.8-10.8)
[2021-03-13 02:55] LABS: INR 1.64 (0.85-1.17); PROTIME 18.1 SECONDS (11.6-15.0)
[2021-03-13 03:09] LABS: ALBUMIN 2.5 g/dL (3.4-5.0); BILIRUBIN - TOTAL 1.49 mg/dL (0.2-1.3); CALCIUM 7.8 mg/dL (8.5-10.1); CARBON DIOXIDE 26.4 mmol/L (21.0-32.0); CREATININE - SERUM 1.6 mg/dL (0.6-1.3); POTASSIUM - SERUM 4.4 mmol/L (3.5-5.1); PROTEIN - SERUM 5.9 g/dL (6.4-8.2)
--- NOTE | 2021-03-13 05:51 | NUR ---
PTT 190, HOLDING HEPARIN DRIP FOR 60 MINS PER PROTOCOL
--- NOTE | 2021-03-13 08:00 | NUR ---
SHIFT REPORT RECEIVED. PT LAYING ON HIS BACK. IABP TO RIGHT GROIN NOTED. SMALL BLOODY SPOT ON DRESSING WHICH WAS MARKED BY INFORMATION SYSTEMS SECURITY MANAGER NURSE. BILATERAL LOWER EXTREMITIES WRAPPED IN DRESSING DUE TO PREVIOUS VERICOSE VEIN SURGERY. 20G PIV TO RFA AND R-AC. CURRENTLY HAS NS AT 50ML/HR, AMIODARONE AT 0.5MG/MIN, AND HEPARIN AT 1000UNITS/HR. ABLE TO USE URINAL. NO SCD'S OR TEDS ON AT THIS TIME. PT DENIES ANY PAIN. SAFETY MEASURES IN PLACE. WILL CONTINUE TO MONITOR.
--- NOTE | 2021-03-13 08:48 | OP ---
PATIENT NAME: EULALIA WILLOUGHBY MEDICAL RECORD: [id number] :61 LOCATION:[facility] ADMISSION DATE:03/07/21 SURGEON: SERENITY HSIEH MD DATE OF OPERATION: 03/12/2021 PROCEDURE: Left heart catheterization, selective coronary angiography plus intraaortic balloon pump placement, right femoral artery approach. CATHETERS: A 5-Telugu sheath, 5/4 left and right Zack, 5/4 pig. The procedure was well tolerated. The patient returned to the CV ICU in stable condition, on heparin drip. FINDINGS: Left ventriculography in 30-degree CEDILLO view: Global LV hypokinesis, reduced EF, estimate EF 20%. LVEDP is 20 to 25 mmHg. CORONARY ANATOMY: Left main: Left main is free of disease. LAD: Previous stent is widely patent. No progression of wichita disease. Circumflex: Free of disease. No progression of wichita disease. No evidence of restenosis circ. Right coronary artery: Free of disease. Given the patient's multiple episodes of ventricular tachycardia postoperatively and more of what appears to be a global insult, a decision was made to place intraaortic balloon pump. Under fluoroscopic guidance, the intraaortic balloon pump was placed in the level of the tal. Balloon pump was begun at 1:1 inflation with augmented pressures up to 120. IMPRESSION: Successful intraaortic balloon pump placement. Hopefully, we unload the ventricle for approximately 48 hours with myopathic medications to help unload the ventricle, will decrease the incidence of arrhythmias. TRANSINT:[id number] Voice Confirmation ID: [id number] DOCUMENT ID: [id number] SERENITY HSIEH MD at 0848 CC: [id number] DICTATION DATE: 03/12/21 0837 VP LEGAL AFFAIRS: 03/12/[address] [facility] [address] [place] [address]
--- NOTE | 2021-03-13 08:48 | EC ---
PATIENT:EULALIA WILLOUGHBY DATE OF SERVICE: 03/07/21 SEX: M MEDICAL RECORD: [id number] DATE OF : 61 LOCATION:[place] [address] AGE OF PATIENT: 56 ADMISSION DATE: 03/07/21 REFERRING PHYSICIAN: INTERPRETING PHYSICIAN: SERENITY HSIEH MD ECHOCARDIOGRAM REPORT ECHO CHARGES 4 ECHO COMPLETE Date: 03/10/21 CLINICAL DIAGNOSIS: V-TACH ECHOCARDIOGRAPHIC MEASUREMENTS (adult normal given) AC root (d.<3.7cm) 2.7 cm LV Septum d (<1.2 cm> 1.3 cm Valve Excursion 1.6 cm LV Septum (systole) 1.7 cm Left Atria (s.<4.0cm> 5.3 cm LVPW d(<1.2cm) 1.0 cm RV (d.<2.3cm) 4.7 cm LVPW (sytole) 1.5 cm LV diastole(<5.6CM) 6.0 cm MV E-F(>70mm/sec) cm LV systole 5.0 cm LVOT Diameter 1.9 cm MV exc.(>10mm) cm Est.ejection fraction (50-75%) % DOPPLER: LVIT cm/sec A cm/sec E 111 cm/sec LA cm/sec RVSP 38.0 mmHg LVOT 71.0 cm/sec AOP1/2T m/s Asc. Ao 154 cm/sec RVOT 58.0 cm/sec RA cm/sec PA 121 cm/sec AV Gradient Peak 9.5 mmHg AV Mean 5.4 mmHg AV Area 1.3 cm MV Gradient Peak 5.9 mmHg MV Mean 2.1 mmHg MV Area cm COMMENTS: Manager Completions: 1 ROSALIND SIEGELOE Systems Support Officer: 3 Dr. Bauer TAPE# PACS Pericardial Effusion N DATE OF SERVICE: Adequate 2D, color flow imaging, spectral Doppler, and M-Mode. FINDINGS: Borderline LVH. LV internal dimensions are dilated. LV is globally hypokinetic with reduced EF, estimated EF 20% to 25%. Aortic valve is sclerosed without stenosis by Doppler interrogation. Left atrium dilated at 5.3 cm. Mitral valve shows no prolapse. Moderate MR. Right side is grossly normal. Moderate TR. ECHOCARDIOGRAM REPORT [id number] EULALIA WILLOUGHBY TRANSINT:[id number] Voice Confirmation ID: [id number] DOCUMENT ID: [id number] SERENITY HSIEH MD at 0848 CC: [id number] DICTATION DATE: 03/11/21 1114 WARP TYING MACHINE KNOTTER: 03/11/21 1438 ADM IN [facility] [address] [place] [address]
--- NOTE | 2021-03-13 08:50 | NUR ---
SPOKE WITH MEGAN PINEDO REGARDING COREG. SBP IS ON 90S AND 80S. HOLD COREG AT THIS TIME.
--- NOTE | 2021-03-13 19:00 | NUR ---
BEDSIDE REPORT COMPLETED WITH OFF GOING NURSE. PT IS LAYING IN BED ON HIS BACK WITH RIGHT LEG STRAIGHT. IABP INSERTION SITE INSPECTED AND IS INTACT. SMALL AREA OF PREVIOUS BLEEDING NOTED, BUT HAS NOT EXPANDED FROM PREVIOUS MARKING. PT DENIES NEEDS AT THIS TIME. NO S/S OF DISTRESS NOTED. WILL CONTINUE TO MONITOR.
[2021-03-14] VITALS (23 sets, daily range): BP systolic 81–114; BP diastolic 47–83
[2021-03-14 04:38] LABS: BASOPHILS 0.7 % (0-2); HEMATOCRIT 31.1 % (42.0-54.0); HEMOGLOBIN 9.5 g/dL (13.5-17.5); IMMATURE GRANULOCYTES 0.5 % (0-5); LYMPHOCYTE ABS# 0.72 10x3/uL (1.32-3.57); LYMPHOCYTES 12.1 % (15-50); MCH 26.4 pg (26.0-34.0); MCHC 30.5 g/dL (31.0-37.0); MCV 86.4 fL (80.0-100.0); MEAN PLATELET VOLUME 10.7 fL (7.4-10.4); MONOCYTES 16.9 % (2-11); NEUTROPHIL ABS# 3.96 10x3/uL (1.78-5.38); NEUTROPHILS 66.8 % (40-80); PLATELET COUNT 203 10x3/uL (130-400); RDW 17.2 % (11.5-14.5)
[2021-03-14 04:39] LABS: WBC 5.9 10x3/uL (4.8-10.8)
[2021-03-14 04:51] LABS: ALBUMIN 2.3 g/dL (3.4-5.0); ANION GAP 8.7 mmol/L (8-16); BILIRUBIN - TOTAL 1.05 mg/dL (0.2-1.3); CALCIUM 7.5 mg/dL (8.5-10.1); CARBON DIOXIDE 29.2 mmol/L (21.0-32.0); CREATININE - SERUM 1.3 mg/dL (0.6-1.3); MAGNESIUM - SERUM 1.8 mg/dL (1.8-2.4); PHOSPHOROUS 2.5 mg/dL (2.5-4.9); POTASSIUM - SERUM 3.9 mmol/L (3.5-5.1); PROTEIN - SERUM 5.8 g/dL (6.4-8.2)
--- NOTE | 2021-03-14 19:00 | NUR ---
BEDSIDE REPORT COMPLETED WITH OFF GOING NURSE. PT IS RESTING IN BED WITH EYES CLOSED AT THIS TIME. NO NEEDS VOICED. SHIFT ASSESSMENT COMPLETED, SEE FLOWSHEET FOR DETAILS. NO S/S OF DISTRESS NOTED. WILL CONTINUE TO MONITOR.
[2021-03-15] VITALS (11 sets, daily range): BP systolic 89–123; BP diastolic 55–75
[2021-03-15 04:37] LABS: HEMATOCRIT 34.4 % (42.0-54.0); HEMOGLOBIN 10.3 g/dL (13.5-17.5); MCH 26.3 pg (26.0-34.0); MCHC 29.9 g/dL (31.0-37.0); MCV 87.8 fL (80.0-100.0); MEAN PLATELET VOLUME 10.1 fL (7.4-10.4); RBC 3.92 10x6/uL (4.20-6.10); RDW 17.4 % (11.5-14.5)
[2021-03-15 05:00] LABS: ANION GAP 9.6 mmol/L (8-16); CALCIUM 7.8 mg/dL (8.5-10.1); CARBON DIOXIDE 29.6 mmol/L (21.0-32.0); CREATININE - SERUM 1.2 mg/dL (0.6-1.3); POTASSIUM - SERUM 4.2 mmol/L (3.5-5.1)
--- NOTE | 2021-03-16 02:53 | NUR ---
PLACED PT ON TELEMETRY ORDERED. WILL CONTINUE TO MONITOR.
[2021-03-16 04:00] VITALS: BP 101/65
--- NOTE | 2021-03-16 04:23 | NUR ---
I have reviewed this patient and I concur with the Shift Assessment completed by the Licensed Practical Nurse today this shift.
[2021-03-16 07:36] LABS: BASOPHILS 0.3 % (0-2); EOSINOPHILS 3.9 % (0-7); HEMATOCRIT 31.2 % (42.0-54.0); HEMOGLOBIN 9.6 g/dL (13.5-17.5); IMMATURE GRANULOCYTES 0.5 % (0-5); LYMPHOCYTE ABS# 0.97 10x3/uL (1.32-3.57); LYMPHOCYTES 15.8 % (15-50); MCH 26.4 pg (26.0-34.0); MCHC 30.8 g/dL (31.0-37.0); MONOCYTES 16.3 % (2-11); NEUTROPHIL ABS# 3.87 10x3/uL (1.78-5.38); NEUTROPHILS 63.2 % (40-80); PLATELET COUNT 200 10x3/uL (130-400); RBC 3.64 10x6/uL (4.20-6.10); RDW 17.1 % (11.5-14.5); WBC 6.1 10x3/uL (4.8-10.8)
[2021-03-16 07:42] LABS: MCV 85.7 fL (80.0-100.0)
[2021-03-16 07:56] LABS: ALBUMIN 2.4 g/dL (3.4-5.0); ALKALINE PHOSPHATASE 78 U/L (30-120); ALT (SGPT) 17 U/L (10-68); BILIRUBIN - TOTAL 1.31 mg/dL (0.2-1.3); CALC OSMOLALITY 272 mosm/kg (275-300); CARBON DIOXIDE 26.5 mmol/L (21.0-32.0); CHLORIDE - SERUM 102 mmol/L (98-107); GLUCOSE 83 mg/dL (74-106); MAGNESIUM - SERUM 1.6 mg/dL (1.8-2.4); PHOSPHOROUS 1.8 mg/dL (2.5-4.9); POTASSIUM - SERUM 4.4 mmol/L (3.5-5.1); PRO BNP 1288 pg/mL (0-125); PROTEIN - SERUM 5.6 g/dL (6.4-8.2); SODIUM 137 mmol/L (136-145); UREA NITROGEN 13 mg/dL (7-18); eGFR NON AFRICAN AMERICAN 81 mL/min (90-120)
[2021-03-16 08:14] VITALS: BP 112/63
[2021-03-16] MEDS ORDERED: HYDROCODONE-AC1 EAC2 PO (09:42)
[2021-03-16] MEDS ORDERED: PACERONE200 MG PO (09:57)
[2021-03-16] MEDS ORDERED: AMIODARONE HCL200 MG PO (10:03)
--- NOTE | 2021-03-16 10:31 | NUR ---
IV AND TELEMETRY DCD. DC PLANS GIVEN. UNDERSTANDING VOICED. ESCORTED TO CAR BY W/C.
[2021-03-16] MEDS ORDERED: LANOXIN125 MCG PO (11:47)
[2021-03-16] MEDS ORDERED: MEXITIL 200 MG200 MG PO (11:49)
--- NOTE | 2021-03-16 13:10 | NUR ---
Nutrition Follow-up: Eating well; ate 100% of breakfast this AM. Noted plans to d/c today. Diet: Regular Wt: 237# (03/15); 243# (03/13) Labs noted: Ca 8.0, PO4 1.8, Mg 1.6, Alb 2.4 Meds noted: Protonix, Pepcid, Bumex, KDur, NS @ 50, electrolyte protocol -RD will follow up within 7 days if pt still admitted.
--- NOTE | 2021-03-16 14:45 | NUR ---
IV AND TELEMETRY DCD. DC PLANS GIVEN. UNDERSTANDING VOICED. ESCORTED TO CAR BY W/C.
== END 2021-03-16 14:46 | disposition home or self-care (01) | DRG 981 ==
LOC: D.MS 09:04 → D.OPS 09:04 → D.MS 18:13 → D.CVICU 03-07 12:10 → D.MS 03-07 12:10 → D.M2 03-07 12:10 → D.OPS 03-07 12:10 → D.M2 03-09 10:24 → D.CVICU 03-12 08:53 → D.ICU 03-13 15:13 → D.M2 03-15 16:42
PROVIDERS: Anesthesiology; Family Medicine; Internal Medicine Interventional Cardiology; Internal Medicine Pulmonary Disease; ADMIT Surgery; ATTEND Surgery
PROC: 065P3ZZ Destruction of Right Saphenous Vein, Percutaneous Approach (ICD-10-PCS; 2021-03-06)
PROC: 06BQ3ZZ Excision of Left Saphenous Vein, Percutaneous Approach (ICD-10-PCS; 2021-03-06)
PROC: 06BP3ZZ Excision of Right Saphenous Vein, Percutaneous Approach (ICD-10-PCS; 2021-03-06)
PROC: 065Q3ZZ Destruction of Left Saphenous Vein, Percutaneous Approach (ICD-10-PCS; principal; 2021-03-06 11:00)
PROC: B2111ZZ Fluoroscopy of Multiple Coronary Arteries using Low Osmolar Contrast (ICD-10-PCS; 2021-03-12)
PROC: B2151ZZ Fluoroscopy of Left Heart using Low Osmolar Contrast (ICD-10-PCS; 2021-03-12)
PROC: 4A023N7 Measurement of Cardiac Sampling and Pressure, Left Heart, Percutaneous Approach (ICD-10-PCS; 2021-03-12)
PROC: 5A02210 Assistance with Cardiac Output using Balloon Pump, Continuous (ICD-10-PCS; 2021-03-12 07:36)
DX: D62 Acute posthemorrhagic anemia (principal); I50.43 Acute on chronic combined systolic (congestive) and diastolic (congestive) heart failure; J96.21 Acute and chronic respiratory failure with hypoxia; I47.2 Ventricular tachycardia; J98.11 Atelectasis; E87.1 Hypo-osmolality and hyponatremia; J84.10 Pulmonary fibrosis, unspecified; I95.9 Hypotension, unspecified; I83.811 Varicose veins of right lower extremity with pain; Z95.0 Presence of cardiac pacemaker; J44.9 Chronic obstructive pulmonary disease, unspecified; J30.9 Allergic rhinitis, unspecified; I48.0 Paroxysmal atrial fibrillation; K21.9 Gastro-esophageal reflux disease without esophagitis; Z87.891 Personal history of nicotine dependence

== ENCOUNTER → 2021-04-04 08:24 | Outpatient (CLI) | payer BC ==
[2021-03-13 11:03] VITALS: BMI 32.0
[~2021-04-04 08:24] MED LIST changes: +AMIODARONE HCL200 MG PO; +HYDROCODONE-AC1 EAC2 PO; +LANOXIN125 MCG PO; +MEXITIL 200 MG200 MG PO; +PACERONE200 MG PO
== END | disposition home or self-care (01) ==
LOC: D.RAD 08:24
PROVIDERS: ATTEND Internal Medicine Pulmonary Disease
DX: J84.9 Interstitial pulmonary disease, unspecified (principal)

== ENCOUNTER 2021-04-04 16:40 | Inpatient (IN) | payer BC ==
[2021-04-04] VITALS (7 sets, daily range): BP systolic 95–122; BP diastolic 65–86; BMI 26.2
[~2021-04-04] VITALS: Ht 185.4 cm; Wt 89.8 kg
--- NOTE | ~2021-04-04 | CN ---
PATIENT NAME:EULALIA WILLOUGHBY MEDICAL RECORD: [id number] : 61 LOCATION:[id number] ADMIT DATE: 04/04/21 ACCOUNT: [id number] CONSULTING PHYSICIAN: SERENITY HSIEH MD REFERRING PHYSICIAN: ROLDAN LEO MD DATE OF CONSULTATION: 04/05/2021 HISTORY OF PRESENT ILLNESS: A 56-year-old gentleman well known to our service with a history of coronary artery disease, cardiomyopathy as well as severe cardiac arrhythmias with VT. On last admit, he underwent angiography, showed no ischemic focus. However, he had a VT storm at that time. Decision was made to balloon pump for 48 hours. He has done fairly well until yesterday. Again, recurrent VT storm. Has a history of ablation in [place], [place]. Sees Dr. Church as well. We are asked to see her concerning her cardiovascular status. PAST MEDICAL HISTORY: Includes; 1. Dyslipidemia. 2. Coronary artery disease. 3. Cardiac arrhythmia as described above. 4. Hypothyroidism, on replacement. MEDICATIONS: Include Synthroid 25 mcg daily, omeprazole 40 daily, metolazone 2.5 daily, potassium 20 mEq daily, Lasix 40 daily, aspirin 81 daily, mexiletine 200 t.i.d., losartan 25 daily, digoxin 0.125 daily, amiodarone 200 b.i.d. SOCIAL HISTORY: Nonsmoker, nondrinker. Easily takes care all of his ADLs. Does try to walk on a regular basis. REVIEW OF SYSTEMS: The patient reports easy bruising but reports no swollen glands. The patient reports no fever, no night sweats, no significant weight gain, no significant weight loss. No significant exercise tolerance. The patient reports no dry eyes, no irritation, no vision change. Patient reports no difficulty hearing and no ear pain. Patient reports no frequent nose bleeds or nose and sinus problems. Patient reports on arm pain on exertion. No shortness of breath while lying down. No history of heart murmur. Patient reports no cough, no wheezing or coughing up blood. Patient reports no abdominal pain, no vomiting. Normal appetite. No diarrhea and not vomiting blood. No nausea and no constipation. Patient reports no incontinence. No difficulty urinating. No hematuria. No increased frequency. Patient reports no muscle aches. No weakness, no arthralgias, no back pain. No swelling of the extremities. Patient reports no abnormal mole, no jaundice, no rashes. Reports no loss of consciousness. No weakness and no numbness. No seizures, dizziness, or headaches. The patient reports no depression, no sleep disturbance, feeling safe in a relationship and no alcohol abuse. Patient reports on fatigue. Reports no runny nose or sinus pressure. No itching, no hives, and no frequent sneezing. PHYSICAL EXAMINATION: GENERAL: No acute distress, appears stated age. VITAL SIGNS: 100/60, pulse 67 and regular. HEENT: Normocephalic, atraumatic. NECK: No bruits noted. HEART: Regular. Questionable S3 gallop. II/ systolic ejection murmur. LUNGS: Fairly good air excursion. ABDOMEN: Soft, nontender. CONSULT REPORT [id number] EULALIA WILLOUGHBY EXTREMITIES: Pulses are palpable 2+. No edema. NEUROLOGIC: Grossly intact. IMPRESSION: VT storm, on both mexiletine and amiodarone. At this point in time, EF has been declining without a lot of room for added myopathic medications given blood pressures. Discussed with Vincent Church and Dr. Duarte, his primary battery inspector that at this point in time might need consideration for even LVAD. We will plan for transfer for higher level of care at this point. TRANSINT:[id number] Voice Confirmation ID: [id number] DOCUMENT ID: [id number] SERENITY HSIEH MD CC: [id number] DICTATION DATE: 04/05/21904 FIXTURE MAKER: 04/05/21 1048 ADM IN [place] [address] [place] [address]
[2021-04-04 17:15] LABS: BASOPHILS 0.4 % (0-2); EOSINOPHILS 2.8 % (0-7); HEMATOCRIT 38.5 % (42.0-54.0); HEMOGLOBIN 11.8 g/dL (13.5-17.5); IMMATURE GRANULOCYTES 0.3 % (0-5); LYMPHOCYTE ABS# 1.39 10x3/uL (1.32-3.57); LYMPHOCYTES 20.8 % (15-50); MCH 25.5 pg (26.0-34.0); MCHC 30.6 g/dL (31.0-37.0); MCV 83.2 fL (80.0-100.0); MONOCYTES 11.2 % (2-11); NEUTROPHIL ABS# 4.31 10x3/uL (1.78-5.38); NEUTROPHILS 64.5 % (40-80); RBC 4.63 10x6/uL (4.20-6.10); RDW 17.1 % (11.5-14.5); WBC 6.7 10x3/uL (4.8-10.8)
[2021-04-04 17:21] LABS: PLATELET COUNT 410 10x3/uL (130-400)
[2021-04-04 17:25] LABS: ANION GAP 11.7 mmol/L (8-16); CALCIUM 9.6 mg/dL (8.5-10.1); CARBON DIOXIDE 31.6 mmol/L (21.0-32.0); CREATININE - SERUM 1.4 mg/dL (0.6-1.3); POTASSIUM - SERUM 3.3 mmol/L (3.5-5.1)
[2021-04-04 17:45] LABS: ALBUMIN 3.4 g/dL (3.4-5.0); BILIRUBIN - TOTAL 1.24 mg/dL (0.2-1.3); MAGNESIUM - SERUM 1.9 mg/dL (1.8-2.4); PROTEIN - SERUM 8.5 g/dL (6.4-8.2)
[2021-04-04 17:50] LABS: TROPONIN-I 0.459 ng/mL (0.000-0.060)
--- NOTE | 2021-04-04 19:00 | NUR ---
RECEIVED REPORT FROM EDGAR JACKSON AT THIS TIME. INFORMED THAT PREVIOUS NURSE SCANNED AMIODARONE, HOWEVER, WAITING FOR MICRO FILTER TUBING FROM PHARMACY AND NOT YET HUNG.
--- NOTE | 2021-04-04 19:48 | NUR ---
RECEIVED MICRO FILTER TUBING FROM PHARMACY AT THIS TIME.
--- NOTE | 2021-04-04 20:00 | NUR ---
FIRST DOSE AMIODARONE HUNG AT THIS TIME, SEE PREVIOUS NOTES.
--- NOTE | 2021-04-04 20:00 | NUR ---
FIRST BAG OF MAG FINISHED.
[2021-04-05] VITALS (16 sets, daily range): BP systolic 99–125; BP diastolic 7–88; Ht 185.4 cm; Wt 89.8 kg
[2021-04-05 04:40] LABS: BASOPHILS 0.6 % (0-2); EOSINOPHILS 4.8 % (0-7); HEMATOCRIT 34.8 % (42.0-54.0); HEMOGLOBIN 10.7 g/dL (13.5-17.5); IMMATURE GRANULOCYTES 0.5 % (0-5); LYMPHOCYTE ABS# 1.17 10x3/uL (1.32-3.57); LYMPHOCYTES 18.7 % (15-50); MCH 25.2 pg (26.0-34.0); MCHC 30.7 g/dL (31.0-37.0); MCV 82.1 fL (80.0-100.0); MEAN PLATELET VOLUME 9.9 fL (7.4-10.4); MONOCYTES 12.3 % (2-11); NEUTROPHIL ABS# 3.94 10x3/uL (1.78-5.38); NEUTROPHILS 63.1 % (40-80); PLATELET COUNT 363 10x3/uL (130-400); RBC 4.24 10x6/uL (4.20-6.10); RDW 17.3 % (11.5-14.5); WBC 6.3 10x3/uL (4.8-10.8)
[2021-04-05 05:00] LABS: ANION GAP 10.3 mmol/L (8-16); CALCIUM 8.9 mg/dL (8.5-10.1); CARBON DIOXIDE 30.9 mmol/L (21.0-32.0); CREATININE - SERUM 1.3 mg/dL (0.6-1.3); POTASSIUM - SERUM 3.2 mmol/L (3.5-5.1)
--- NOTE | 2021-04-05 08:28 | HP ---
PATIENT: EULALIA WILLOUGHBY MEDICAL RECORD: [id number] ACCOUNT: [id number] LOCATION:[facility] D.2305 : 61 ADMISSION DATE: 04/04/21 PCP: ROLDAN LEO HISTORY AND PHYSICAL EXAMINATION DATE OF ADMISSION: 04/04/2021. CHIEF COMPLAINT: "My defibrillator went off." HISTORY OF PRESENT ILLNESS: This is a 56-year-old white male with history of coronary artery disease, atrial fibrillation, cardiomyopathy with 20% ejection fraction with an automatic implantable cardiac defibrillator. He was sitting in home watching TV when his defibrillator went off. He denied any chest pain or shortness of breath. He had no warning of this at all. It has gone off before, but he is always seem to have a warning sign, but he did not have one this time. He was brought to the Emergency Department and he will be admitted to ICU for further evaluation and consultation by Cardiology. PAST MEDICAL HISTORY: Coronary artery disease, cardiomyopathy with last echo showing ejection fraction of approximately 20%, atrial fibrillation, history of psoriasis and reflux. PAST SURGICAL HISTORY: He has had a procedure for varicose veins in his legs. He has had coronary stents and he had the AICD placed. DRUG ALLERGIES: None known. HOME MEDICATIONS: Claritin 10 mg once a day, amiodarone 200 mg twice a day, Lanoxin 0.125 mg once a day, mexiletine 200 mg p.o. q.8 hours, aspirin 81 mg once a day, Lasix 40 mg twice a day, potassium 20 mEq twice a day, omeprazole 40 mg every other day, levothyroxine 25 mcg once a day, Entresto twice a day. FAMILY HISTORY: Father at 47 of heart issues. Mother at 88 of unknown causes. SOCIAL HISTORY: The patient is and retired. HABITS: No tobacco, alcohol or drugs. REVIEW OF SYSTEMS: GENERAL: No major weight changes. HEENT: No particular sinus or allergy problems. RESPIRATORY: He does use inhalers p.r.n. and no known diagnosis of COPD. He does have sleep apnea. CARDIAC: See above history, followed by [facility]. GASTROINTESTINAL: He has some heartburn. GENITOURINARY: No significant problems there. MUSCULOSKELETAL: There are no significant problems there. NEUROLOGIC: No migraines or seizures. PSYCHIATRIC: No depression or melancholia. PHYSICAL EXAMINATION: VITAL SIGNS: Temperature 97.9, heart rate 93, his blood pressure is stable. GENERAL: He is lying in hospital bed in the Emergency Department, awake and alert, does not appear in acute distress. HISTORY AND PHYSICAL [id number] CASEEULALIA HEENT: Grossly within normal limits. NECK: Supple. No bruit. HEART: Regular rate and rhythm right now. LUNGS: Fairly clear. ABDOMEN: Soft, flat, nontender. EXTREMITIES: Trace to 1+ lower extremity edema. LABORATORY DATA: CBC with a white count of 6700, hemoglobin 11.8, hematocrit 38.5. Sodium 135, potassium 3.3, chloride 95, CO2 of 31.6, BUN 23, creatinine 1.4, glucose 107, calcium 9.6. Liver functions are normal. Magnesium 1.9. Troponin 0.459, proBNP 3754. Chest x-ray shows enlarged pericardial silhouette. ASSESSMENT: History of cardiomyopathy and episodes of ventricular tachycardia with cardiac defibrillator going off at night. PLAN: We will monitor in the ICU. Cardiology has been consulted. Other testing or procedures as warranted. TRANSINT:[id number] Voice Confirmation ID: [id number] DOCUMENT ID: [id number] ANA MARIA COTTON MD at 0828 CC: [id number] DICTATION DATE: 04/04/212328 CUTTER BRAKE LINING: 04/05/21 0113 ADM IN [facility] [address] [place] [address]
--- NOTE | 2021-04-05 08:53 | NUR ---
HR CONTROLLED A FIB. NO C/O DEFIBRILLATION. DISCUSSED W/ MEGAN WITH CARDS THAT PT WILL TRANSFER TO [facility] TODAY TO SEE DR. CLEVELAND AFTER DR. CLEVELAND AND DR. BANSAL TALK.
--- NOTE | 2021-04-05 10:24 | NUR ---
DR. LEO PAGED AND DIET ORDERED. POC DISCUSSED.
--- NOTE | 2021-04-05 14:15 | NUR ---
REPORT CALLED TO OTILIO SHAH RN, AT [facility]. PER CM, AMBULANCE WILL BE HERE IN AN HOUR. NOTIFIED PT AND .
--- NOTE | 2021-04-05 15:15 | NUR ---
DR. BANSAL HERE TO SIGN PAPERWORK.
--- NOTE | 2021-04-05 15:39 | NUR ---
FACESHEET FAXED TO MUNA AT [facility].
--- NOTE | 2021-04-05 18:02 | MORECARE ---
CASE MANAGEMENT DISCHARGE SUMMARY PATIENT: EULALIA WILLOUGHBY UNIT: [id number] ADM DATE: 04/04/21 AGE: 56 : 61 SEX: M ROOM/BED: D.[facility]5 AUTHOR: GUI,DOC PHYSICIAN: REFERRING PHYSICIAN: ROLDAN LEO MD DATE OF SERVICE: 04/05/21 Case Management Discharge Planning Summary DCP REVIEW SUMMARY ANTICIPATED D/C DATE: 04/05/2021 EXPECTED LOS : 1 CASE STATUS: DCP Initiated INITIAL REVIEW: 04/04/2021 INITIAL REVIEWER: Anita Isabel FINAL DISCHARGE DISPOSITION: 64 : Discharged/Trans to a Critical Access Hospital ([facility]) FINAL REVIEWER: Anita Isabel FINAL REVIEW DATE: 04/05/2021 DCP Focus Questions & Answers QUESTION: ANSWER : PATIENT: EULALIA WILLOUGHBY ENCOUNTER: [id number] MEDICAL RECORD#: [id number] ADMISSION DATE: 04/04/2021 DISCHARGE DATE: ATTENDING MD: ROLDAN CLARK : AGE: 56 MARITAL STATUS: M DC PLAN ID: [id number] FACILITY: [facility] PRINTED ON: 04/05/21 18:02 CT All edits/amendments must be made on the electronic document DICTATION DATE: 04/05/211801 CLIENT ENGAGEMENT MANAGER: GABRIELA 04/05/211801 RPT#: [id number] DC DATE: STATUS: ADM IN [facility] [address] [place] [address] END OF REPORT
--- NOTE | 2021-04-05 18:13 | MORECARE ---
CASE MANAGEMENT DISCHARGE SUMMARY PATIENT: EULALIA WILLOUGHBY UNIT: [id number] ADM DATE: 04/04/21 AGE: 56 : 61 SEX: M ROOM/BED: D.2305 AUTHOR: GUI,DOC PHYSICIAN: REFERRING PHYSICIAN: ROLDAN LEO MD DATE OF SERVICE: 04/05/21 Case Management Discharge Planning Summary COMMENTS ENTERED DATE: 04/05/21 17:55 CT COMMENT TYPE: Discharge Planning REVIEWER: Anita Isabel late entry 1000 The plan is to transfer this patient to [facility] for a higher level of care. His eyelet punch operator is on staff and has experience with EPS intervention. 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 CM spoke with the primary nurse and provided the nurse with transfer packet forms. She was awaiting cardiology to visit for MD to MD and to complete transfer forms. 1500 Rec telephone call from primary nurse regarding progress with transfer. She had not communicated w/ the eyelet punch operator. He was in the physical laboratory assistant today. She will await his visit to discuss transfer with an accepting MD.. CM advised she clarify what MD has arranged. DCP REVIEW SUMMARY ANTICIPATED D/C DATE: 04/05/2021 EXPECTED LOS : 1 CASE STATUS: DCP Initiated INITIAL REVIEW: 04/04/2021 INITIAL REVIEWER: Anita Isabel FINAL DISCHARGE DISPOSITION: 64 : Discharged/Trans to a Critical Access Hospital ([facility]) FINAL REVIEWER: Anita Isabel FINAL REVIEW DATE: 04/05/2021 DCP Focus Questions & Answers QUESTION: ANSWER : PATIENT: EULALIA WILLOUGHBY ENCOUNTER: [id number] MEDICAL RECORD#: [id number] ADMISSION DATE: 04/04/2021 DISCHARGE DATE: ATTENDING MD: ROLDAN CLARK : AGE: 56 MARITAL STATUS: M DC PLAN ID: [id number] FACILITY: [facility] PRINTED ON: 04/05/21 18:13 CT All edits/amendments must be made on the electronic document DICTATION DATE: 04/05/211812 FORCE VARIATION EQUIPMENT TENDER: GABRIELA 04/05/211812 RPT#: [id number] DC DATE: STATUS: ADM IN [facility] [address] [place] [address] END OF REPORT
--- NOTE | 2021-04-05 19:23 | NUR ---
PATIENT IS AWAKE/ALERT, ORIENTEDX4 SITTING AT THE BEDSIDE AWAITING TRANSPORT WITH . VSS. NO CONCERNS AT THIS TIME.
--- NOTE | 2021-04-05 21:41 | MORECARE ---
CASE MANAGEMENT DISCHARGE SUMMARY PATIENT: EULALIA WILLOUGHBY UNIT: [id number] ADM DATE: 04/04/21 AGE: 56 : 61 SEX: M ROOM/BED: D.2305 AUTHOR: GUI,DOC PHYSICIAN: REFERRING PHYSICIAN: ROLDAN LEO MD DATE OF SERVICE: 04/05/21 Case Management Discharge Planning Summary COMMENTS ENTERED DATE: 04/05/21 17:55 CT COMMENT TYPE: Discharge Planning REVIEWER: Anita Isabel late entry 1000 The plan is to transfer this patient to [facility] for a higher level of care. His instructor dramatic arts is on staff and has experience with EPS intervention. 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 CM spoke with the primary nurse and provided the nurse with transfer packet forms. She was awaiting cardiology to visit for MD to MD and to complete transfer forms. 1500 Rec telephone call from primary nurse regarding progress with transfer. She had not communicated w/ the instructor dramatic arts. He was in the slab worker today. She will await his visit to discuss transfer with an accepting MD.. CM advised she clarify what MD has arranged. DCP REVIEW SUMMARY ANTICIPATED D/C DATE: 04/05/2021 EXPECTED LOS : 1 CASE STATUS: DCP Initiated INITIAL REVIEW: 04/04/2021 INITIAL REVIEWER: Anita Isabel FINAL DISCHARGE DISPOSITION: 64 : Discharged/Trans to a Critical [facility] ([facility]) FINAL REVIEWER: Anita Isabel FINAL REVIEW DATE: 04/05/2021 DCP Focus Questions & Answers QUESTION: ANSWER : PATIENT: EULALIA WILLOUGHBY ENCOUNTER: [id number] MEDICAL RECORD#: [id number] ADMISSION DATE: 04/04/2021 DISCHARGE DATE: 04/05/2021 ATTENDING MD: ROLDAN CLARK : AGE: 56 MARITAL STATUS: M DC PLAN ID: [id number] FACILITY: [facility] PRINTED ON: 04/05/21 21:41 CT All edits/amendments must be made on the electronic document DICTATION DATE: 04/05/212140 GUSSET EDGER: DM 04/05/212140 RPT#: [id number] DC DATE:04/05/21 STATUS: DIS IN [facility] [address] [facility] [place] [address] END OF REPORT
--- NOTE | 2021-04-06 07:50 | MORECARE ---
CASE MANAGEMENT DISCHARGE SUMMARY PATIENT: EULALIA WILLOUGHBY UNIT: [id number] ADM DATE: 04/04/21 AGE: 56 : 61 SEX: M ROOM/BED: D.2305 AUTHOR: GUI,DOC PHYSICIAN: REFERRING PHYSICIAN: ROLDAN LEO MD DATE OF SERVICE: 04/06/21 Case Management Discharge Planning Summary COMMENTS ENTERED DATE: 04/05/21 17:55 CT COMMENT TYPE: Discharge Planning REVIEWER: Anita Isabel late entry 1000 The plan is to transfer this patient to [facility] for a higher level of care. His rehabilitation services aide is on staff and has experience with EPS intervention. 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 CM spoke with the primary nurse and provided the nurse with transfer packet forms. She was awaiting cardiology to visit for MD to MD and to complete transfer forms. 1500 Rec telephone call from primary nurse regarding progress with transfer. She had not communicated w/ the rehabilitation services aide. He was in the microbiology lab technician today. She will await his visit to discuss transfer with an accepting MD.. CM advised she clarify what MD has arranged. DCP REVIEW SUMMARY ANTICIPATED D/C DATE: 04/05/2021 EXPECTED LOS : 1 CASE STATUS: DCP Initiated INITIAL REVIEW: 04/04/2021 INITIAL REVIEWER: Anita Isabel FINAL DISCHARGE DISPOSITION: 64 : Discharged/Trans to a Critical Access Hospital ([facility]) FINAL REVIEWER: Anita Isabel FINAL REVIEW DATE: 04/05/2021 DCP Focus Questions & Answers QUESTION: ANSWER : PATIENT: EULALIA WILLOUGHBY ENCOUNTER: [id number] MEDICAL RECORD#: [id number] ADMISSION DATE: 04/04/2021 DISCHARGE DATE: 04/05/2021 ATTENDING MD: ROLDAN CLARK : AGE: 56 MARITAL STATUS: M DC PLAN ID: [id number] FACILITY: [facility] PRINTED ON: 04/06/21 7:50 CT All edits/amendments must be made on the electronic document DICTATION DATE: 04/06/21749 SPINE NURSE: DM 04/06/21749 RPT#: [id number] DC DATE:04/05/21 STATUS: DIS IN [facility] [address] [place] [address] END OF REPORT
== END 2021-04-05 21:00 | disposition short-term general hospital (02) | DRG 309 ==
LOC: D.ER 16:40 → D.ICU 18:19
PROVIDERS: Emergency Medicine; Family Medicine; ADMIT Family Medicine; ATTEND Family Medicine
DX: I47.2 Ventricular tachycardia (principal); I42.9 Cardiomyopathy, unspecified; I25.10 Atherosclerotic heart disease of native coronary artery without angina pectoris; I48.91 Unspecified atrial fibrillation; E78.5 Hyperlipidemia, unspecified; E03.9 Hypothyroidism, unspecified; Z95.810 Presence of automatic (implantable) cardiac defibrillator

== ENCOUNTER → 2021-05-30 12:22 | Outpatient (CLI) | payer BC ==
[2021-04-05 08:12] VITALS: BMI 26.1
== END | disposition home or self-care (01) ==
LOC: D.RAD 12:22
PROVIDERS: ATTEND Internal Medicine Pulmonary Disease
DX: J44.9 Chronic obstructive pulmonary disease, unspecified (principal)